=== PATIENT | female | born 1930 | race Caucasian/White ===

== ENCOUNTER 2016-12-05 19:27 | Emergency (ER) | payer MEDICARE ==
[~2016-12-05] VITALS: Ht 154.9 cm; Wt 91.4 kg
[~2016-12-05 19:27] MED LIST: ACET-171 PO; ALBU90AE IH; AMLO10TA3 PO; ASCO500C6 PO; CALC-190 PO; CHOL100043 PO; CYCL5TAB PO; DEXT350P5 PO; FERR325T39 PO; FURO40TA4 PO; GABA-502 PO; HYDR-4003 PO; INSU100I18 SUBQ; LEVO50TA6 PO; LOSA100T29 PO; METO50TA3 PO; NPH,100I SUBQ; NYST1POW23 TOPICAL; OMEP20CA11 PO; PRAM0.5T3 PO; PRE20 PO; SIMV20TA4 PO
[2016-12-05 19:28] VITALS: BP 116/77; PULSE 91; RESP 16; O2SAT 98
[2016-12-05] MEDS ORDERED: fentaNYL-PF 50 mCg/mL 2 mL Inj ONE (19:28)
[2016-12-05] MEDS ORDERED: 0.9% Sodium Chloride 1,000 ML IV ONE (19:55)
--- NOTE | 2016-12-05 20:04 | ED.REPORT ---
HPI-Altered Mental Status Date of Service Dec 05, 2016 ED Provider: Socrates Bernal DO Ms. Sousa is a very pleasant 86-year-old female asked medical history of diabetes, hypertension, diverticulitis status post colostomy presents to the ED via EMS after urgent care visit she was reported to be hypotensive with an increased in confusion. Patient is able to answer questions appropriately does not complain of any specific pain with the exception of a headache/ lightheadedness 1 day. Patient states she began feeling generally unwell yesterday with an increase in malaise does not report nausea or vomiting or other sick contacts does endorse a nonproductive cough. Nursing Notes Stated Complaint: FLU SYMPTOMS Chief Complaint: General Complaint Nursing Notes Reviewed: Yes Allergies: Coded Allergies: Sulfa (Sulfonamide Antibiotics) (Verified Allergy, Unknown, 06/19/16) adhesive tape (Verified Allergy, Unknown, UNKNOWN, 06/19/16) meperidine (Verified Allergy, Unknown, 06/19/16) metformin (Verified Allergy, Unknown, 06/19/16) Tetanus and Diphtheria Toxoid (Verified Adverse Reaction, Severe, localized swelling, severe, 09/12/15) amitriptyline (Verified Adverse Reaction, Severe, hallucinations, 09/12/15 ) Opioids - Morphine Analogues (Verified Adverse Reaction, Intermediate, Nausea,Vomiting, 09/12/15) codeine (Verified Adverse Reaction, Intermediate, N&V, 09/12/15) states codiene causes nausea and vomiting, but taking Vicodin causes no problems for her. metformin HCl (Verified Adverse Reaction, Intermediate, Nausea, 09/12/15) Scheduled Amlodipine (Amlodipine) 10 Mg Tablet 10 MG PO DAILY Ascorbic Acid (Vitamin C) 500 Mg Capsule.er 500 MG PO DAILY Calcium Carb&Cit/Mag12/Vit D3 (Calcium 500 mg Tablet) 1 Each Tablet 1 EACH PO BIDWM Cefuroxime Axetil (Cefuroxime) 500 Mg Tablet 500 MG PO BID Cholecalciferol (Vitamin D3) (Vitamin D) 1,000 Unit Tablet 1,000 UNIT PO DAILY Ferrous Sulfate (Iron) 325 Mg Tablet 325 MG PO QPM Furosemide (Furosemide) 40 Mg Tablet 40 MG PO 08,12 Gabapentin (Gabapentin) 300 Mg Capsule 600 MG PO HS Hydrocodone-Acetaminophen 5-325 mg (Hydrocodone-Acetaminophen 5-325 mg) 1 Each Tablet 1 EACH PO ACHS 4 tablets daily. Tablet at bedtime OR in the middle of the night. Insulin Lispro (HumaLOG U100 Insulin Pen) 100 Unit/1 Ml Insuln.pen 4 UNIT SUBQ TIDWM Levothyroxine (Levothyroxine) 50 Mcg Tablet 50 MCG PO DAILY Losartan Potassium (Losartan Potassium) 100 Mg Tablet 100 MG PO DAILY Metoprolol Tartrate (Metoprolol Tartrate) 50 Mg Tablet 50 MG PO BID NPH, Human Insulin Isophane (HUMulin-N U100 Insulin Kwikpen) 100 Unit/1 Ml Insuln.pen 12 UNIT SUBQ DAILYWM NPH, Human Insulin Isophane (HUMulin-N U100 Insulin Kwikpen) 100 Unit/1 Ml Insuln.pen 10 UNIT SUBQ DAILYWD Nystatin (Nystatin) 1 Each Powder.ea. 1 APPLIC TOPICAL BID to affected areas in abdominal folds, groin, under breasts. Omeprazole (Omeprazole) 20 Mg Capsule.dr 40 MG PO BID Pramipexole Dihydrochloride (Mirapex) 0.5 Mg Tablet 0.5 MG PO HS 2-3 hours before bedtime. Prednisone (PredniSONE) 20 Mg Tablet 20 MG PO TID Simvastatin (Simvastatin) 20 Mg Tablet 20 MG PO HS Scheduled PRN Acetaminophen (Acetaminophen) 500 Mg Tablet 1,000 MG PO HS PRN PRN For Pain Avoid using together with Vicodin (Hydrocodone/acetaminophen). Cyclobenzaprine (Cyclobenzaprine) 5 Mg Tablet 5 MG PO TID PRN PRN Spasm Dextrin (Fiber) 350 Gm Powder 1-2 TBS PO HS PRN PRN For Constipation Miscellaneous Medications Albuterol Sulfate (Proair Respiclick) 90 Mcg Aer.pow.ba 2 PUFFS IH General Time Seen by MD: 19:43 Chief Complaint Not acting right Hx Obtained From: Patient, Spouse Arrived By: Ambulance Sudden in Onset?: No Onset Occurred: 1 day ago Symptom Duration: Since onset Past Medical History Past Medical History PER OLD REPORTS 1. Well documented in previous H and P's. 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 2. History of atrial fibrillation in the past. 3. Hypertension history. 4. Diabetes mellitus type 2. The patient is insulin dependent. 5. Obstructive sleep apnea. 6. Hyperlipidemia. 7. Hypothyroidism. 8. Depression. 9. Anxiety. 10. GERD. 11. Hiatal hernia. 12. Chronic back pain. 13. Osteoporosis. 14. L. leg edema status post fall 15. History of bilateral breast biopsy for bening disease. Reports: COPD, GERD, Hyperlipidemia Past Surgical History 1. Bilateral knee replacements. 2. Jessica fundoplication. 3. Bilateral breast biopsies. 4. Sigmoid colectomy. Smoking History Never Smoker Social History Other Social History: Local resident Ambulatory Status Walker Review of Systems Constitutional: Denies: Chills, Fever Eyes: Denies: Blurred bilateral, Photophobia Respiratory: Reports: Non-productive cough, Denies: Hemoptysis, Pleuritic pain, Shortness of breath, Wheezing Cardiovascular: Denies: Chest pain, Edema, Palpitations GI: Reports: Nausea, Denies: Abdominal pain, Belching, Bloody/tarry stool, Constipation, Diarrhea , Vomiting Neurologic: Reports: Headache, Lightheaded, Denies: Abnormal movement, Change LOC, Confusion, Dizziness, Focal weakness, Numbness, Spinning sensation, Vision change, Weakness Psychiatric: Reports: Confusion, Denies: Change mental status Physical Exam General: No acute distress, well-developed, well-nourished, appropriately interactive though slow to answer questions. HEENT: Normocephalic, atraumatic. External ears without defect. Pupils round and reactive to light, right pupil appears more dilated than left patient endorses recent right eye surgery. Anicteric sclerae, moist conjunctivae, and no lid lag. Oropharynx free of erythema and cobble stoning with moist mucosa. Upper dentures in place Neck: Supple with full range of motion. No jugular venous distension. Cardiovascular: Irregular rhythm tachycardic rate no murmurs, rubs, or gallops appreciated Pulmonary: Clear to auscultation bilaterally upper anterior lobes with no crackles, wheezes, or rhonchi. Normal respiratory effort with no use of accessory muscles. Abdomen: Soft, nontender, nondistended. Extremities: No clubbing, mild lower extremity edema bilaterally to ankles. Skin: Normal temperature, turgor, and texture; no rash, ulcers, or subcutaneous nodules appreciated. Neurological: Cranial nerves grossly intact. Normal muscle strength, tone, and bulk. Reflexes, coordination, and sensory function within normal limits. Walks with walker Psychiatric: Normal mood and affect. Alert and oriented to person, place, and time. Initial Vital Signs Vital Signs (First) Date Time Temp Pulse Resp B/P Pulse Ox O2 Delivery O2 Flow Rate FiO2 12/05/16 19:28 36.8 91 16 116/77 98 Room Air Initial VS: Reviewed Interpretation & Diagnostics X-RAY CHEST ONE VIEW, PORTABLE IMPRESSION: No acute cardiopulmonary disease process. Dictated by: Tamiko Licona MD, PhD on 12/05/2016 at 20:17 CT brain noncontrast showed no acute intracranial abnormality. Lab Results Interpretation Result Diagram: 12/05/16 2000 12/05/162 Test 12/05/16 20:00 12/05/16 21:18 12/05/16 22:00 12/05/16 22:02 White Blood Count 10.0th/mm3 (3.8-10.1) Red Blood Count 4.43mil/mm3 (3.90-5.20) Hemoglobin 12.6g/dL (12.0-15.6) Hematocrit 39.4% (35.0-46.0) Mean Corpuscular Volume 88.9fL (81-100) Mean Corpuscular Hemoglobin 28.4pg (27.0-35.0) Mean Corpuscular Hemoglobin Concent 32.0% (32.0-37.0) Red Cell Distribution Width 15.1% (12.3-15.4) Platelet Count 144bil/L (150-400) Neutrophils (%) (Auto) 88.6% (40-74) Lymphocytes (%) (Auto) 4.2% (14-46) Monocytes (%) (Auto) 4.1% (4-12) Eosinophils (%) (Auto) 2.7% (0-5) Basophils (%) (Auto) 0.2% (0-3) Lactic Acid Level 1.7mmol/L (0.4-2.0) Magnesium Level 2.1mg/dL (1.6-2.6) Total Bilirubin 0.8mg/dL (0.0-1.2) Aspartate Amino Transf (AST/SGOT) 19U/L (0-50) Alanine Aminotransferase (ALT/SGPT) 19U/L (0-32) Alkaline Phosphatase 64U/L (25-165) Total Protein 6.7g/dL (6.4-8.4) Albumin 3.4g/dL (3.4-5.0) Procalcitonin 0.53ng/mL (See Comment) Urine Color Yellow (YELLOW) Urine Appearance Clear (CLEAR,HAZY) Urine pH 6.0 (5.0-8.0) Urine Specific [place] 1.010 (1.003-1.035) Urine Protein Negativemg/dL (NEG,TRACE) Urine Glucose (UA) Negativemg/dL (NEGATIVE) Urine Ketones Negativemg/dL (NEGATIVE) Urine Occult Blood Negative (NEGATIVE) Urine Nitrite Negative (NEGATIVE) Urine Bilirubin Negative (NEGATIVE) Urine Urobilinogen Normalmg/dL (NORMAL) Urine Leukocyte Esterase Trace (NEGATIVE) Urine RBC 0-2/hpf (0-2) Urine WBC 6-10/hpf (0-5) Urine Epithelial Cells Few/hpf (NONE-MOD) Urine Crystals None seen (NONE SEEN) Urine Bacteria Few/hpf (NONE-FEW) Urine Hyaline Casts None/lpf (NONE) Urine Granular Casts None seen (NONE SEEN) Urine Waxy Casts None seen (NONE SEEN) Urine Red Blood Cell Casts None seen (NONE SEEN) Urine White Blood Cell Casts None seen (NONE SEEN) Urine Mucus None seen (None Seen) Urine Trichomonas None seen (NONE SEEN) Urine Yeast None (NONE SEEN) Urinalysis Comment None Urine Culture Reflexed Indicated Troponin T 0.010ug/L (0.0-0.011) Sodium Level 139mEq/L (134-144) Potassium Level 3.5mEq/L (3.5-5.2) Chloride Level 99mEq/L (97-108) Carbon Dioxide Level 26mmol/L (18-29) Blood Urea Nitrogen 29mg/dL (8-27) Creatinine 1.03mg/dL (0.57-1.00) Estimat Glomerular Filtration Rate 73mL/min (>59) Glucose Level 124mg/dL (60-99) Calcium Level 8.3mg/dL (8.5-10.1) ECG Interpretation ECG Interpretation: A. fib, right bundle branch block, old inferior infarct Re-Eval/Medical Decision Med Decision/Clinical Course Patient's presenting symptoms most likely secondary to urinary tract infection. Though reported to be hypotensive in urgent care patient's vital signs remained stable throughout ED stay, lowest map recorded 88. CBC unremarkable, CMP showed mildly elevated BUN/creatinine 30/1.15. Lactic acid negative troponin negative pro calcitonin 0.53. Chest x-ray showed no acute cardiopulmonary disease. Patient given normal saline, Vital signs remained stable throughout ED stay temperature 36.8, blood pressure 116/77 pulse rate 91 respiratory rate 16 EKG showed A. fib not seen in prior EKG. When questioned about this both patient and patient's son endorsed that she is diagnosed with paroxysmal A. fib , though not on blood thinning medication. Repeat BMP showed creatinine at 1.03 BUN 29. At time of dictation urine and blood cultures pending. Patient did complain of head ache/pain brain CT noncontrast negative for acute changes. While white count unremarkable at 10,000. Patient did have an elevated pro- calcitonin. Chest x-ray READ showed no acute cardiopulmonary process though patient did appear to have possible left lower lobe developing infiltrate. Urinalysis showed 6-10 WBCs and trace leukocyte esterase. Patient given cefuroxime which should cover both possible pneumonia and UTI. urine grows culture and proves to be insensitive to cephalosporin will contact patient. Counseled Regarding: Diagnosis, Lab results, Need for follow-up, When/why to return to ED Patient Discharge & Departure Shift Change Sign-Out Response to Therapy: Improved Impression: Primary Impression: Urinary tract infection Urinary tract infection type: acute cystitis Hematuria presence: without hematuria Qualified Code: N30.00 - Acute cystitis without hematuria Disposition: Home Discharge Condition All VS Reviewed: Yes Condition: Improved Additional Instructions: The blood work we obtained in the ER did not any specific signs for infection, though it did show that you are mildly dehydrated as repeat blood work after you had received fluid showed an improvement in your kidneys. Your urine however did show that you have a mild urinary tract infection. You have received antibiotics while in the emergency department, and I am giving her a prescription for Macrobid that you are to take 2 times per day for the next week. Imaging of your brain and your chest did not show any active signs of infection. This point you are medically cleared for discharge to home with your antibiotic prescription however if you develop any worsening or continuation of her current symptoms, develop fevers chills nausea vomiting headache visual changes chest pain shortness of breath diarrhea or blood in your urine or stool please return to the emergency door refer additional evaluation. Referrals: Napoleon Patterson DO (PCP) Attending Statement I personally took a history performed a physical examination. I took the call from the urgent care transferred Mrs. Sousa to us. This a very delightful 86- year-old female who presents to [facility] with no complaints whatsoever. Evidently she had some forgetfulness and possible fevers she was seen at an urgent care. They are concerned that she was hypotensive in the really could not work her up. We found that she probably has a partially treated urinary tract infection and I am concerned that she may be developing pneumonia on the x-ray. Either way she was given a dose of IV antibiotics and IV fluids. She was worked up. CT scan brain was reassuring. Acute stroke seems very unlikely. She certainly is not septic. PR was ruled out based on history or physical examination. Diagnostics were also reassuring from a cardiac standpoint. Mrs. Sousa did not wish to be any longer the emergency department. I found no good reason to admit her to the hospital. I do think that we should culture her urine and place her on a antibiotic to cover both chest and urine. We did this. She is followed closely. At discharge she is slightly stable oriented 4 and was ready to be discharged home. She is pleased with her care and disposition. JACKSON KIM DO Dec 05, 2016 20:04 Socrates Bernal DO Dec 06, 2016 17:47
[2016-12-05 20:13] LABS: BASOPHILS % (AUTO) 0.2 % (0-3); EOSINOPHILS % (AUTO) 2.7 % (0-5); MONOCYTES % (AUTO) 4.1 % (4-12); Mean Corpuscular Hemoglobin 28.4 pg (27.0-35.0); Mean Corpuscular Volume 88.9 fL (81-100); NEUTROPHILS % (AUTO) 88.6 % (40-74); Platelet Count 144 bil/L (150-400)
[2016-12-05 20:15] VITALS: BP 101/82; PULSE 95; RESP 26; O2SAT 97
--- NOTE | 2016-12-05 20:18 | DRSVH ---
PROCEDURE: X-RAY CHEST ONE VIEW, PORTABLE ([id number]) INDICATIONS: dizziness TECHNIQUE: One view of the chest was acquired. COMPARISON: [facility], CR, XR CHEST 2VW, 09/12/2015, 23:00. FINDINGS: Surgical changes and devices: Multiple surgical clips noted the gastroesophageal junction.. Lungs and pleura: No pleural effusions or pneumothorax. Lungs are clear. Mediastinum: Mediastinal contours appear normal. Heart size is normal. Bones and chest wall: No suspicious bony lesions. Overlying soft tissues appear unremarkable. IMPRESSION: No acute cardiopulmonary disease process. Dictated by: Tamiko Licona MD, PhD on 12/05/2016 at 20:17 Approved by: Tamiko Licona MD, PhD on 12/05/2016 at 20:17
[2016-12-05 20:46] LABS: TROPONIN T < 0.010 ug/L (0.0-0.011)
[2016-12-05 20:49] LABS: Magnesium 2.1 mg/dL (1.6-2.6)
[2016-12-05 21:16] VITALS: BP 140/76; PULSE 86; RESP 16; O2SAT 98
[2016-12-05 21:27] LABS: COLOR,URINE YELLOW (YELLOW)
[2016-12-05 21:28] LABS: APPEARANCE,URINE CLEAR (CLEAR,HAZY); OCCULT BLOOD,URINE NEGATIVE (NEGATIVE); UROBILINOGEN,URINE NORMAL (NORMAL)
[2016-12-05] MEDS ORDERED: cefTRIAXone Inj 2,000 MG in IV Premix 1 EACH IV ONE (21:55)
[2016-12-05] MEDS ORDERED: NITR100 PO (23:31)
[2016-12-06] MEDS ORDERED: CEFU500T61 PO (00:17)
[2016-12-06 00:40] VITALS: PULSE 82; RESP 18; O2SAT 97
--- NOTE | 2016-12-06 09:08 | DRSVH ---
PROCEDURE: CT BRAIN WITHOUT CONTRAST ([id number]) INDICATIONS: headache TECHNIQUE: Noncontrast 4.5 mm thick angled axial sections acquired from the foramen magnum to the vertex, with c oronal reformats. COMPARISON: None. FINDINGS: Image quality: Excellent. CSF spaces: Basal cisterns are patent. No extra-axial fluid collections. The ventricles are symmet sebastien in size and shape. Brain: No intracranial bleeds or masses. There is cerebral volume loss for age, with resultant vent ricular and sulcal prominence. There are periventricular and deep white matter chronic small vessel ischemic changes. There is intracranial internal carotid artery and left vertebral artery atheroscle rosis. Skull and face: Calvarium and visualized facial bones appear intact, without suspicious lesions. Sinuses: Mild mucosal thickening noted in the maxillary sinuses bilaterally. The mastoids are clear. IMPRESSION: No acute intracranial disease process. Dictated by: Tamiko Licona MD, PhD on 12/06/2016 at 9:06 Approved by: Tamiko Licona MD, PhD on 12/06/2016 at 9:06
== END 2016-12-06 00:40 | disposition home or self-care (01) ==
LOC: SED 19:27
DX: N30.00 Acute cystitis without hematuria (principal); I48.91 Unspecified atrial fibrillation; I45.10 Unspecified right bundle-branch block; E11.9 Type 2 diabetes mellitus without complications; I10 Essential (primary) hypertension; K57.92 Diverticulitis of intestine, part unspecified, without perforation or abscess without bleeding; J44.9 Chronic obstructive pulmonary disease, unspecified; E78.5 Hyperlipidemia, unspecified; K21.9 Gastro-esophageal reflux disease without esophagitis; Z93.3 Colostomy status; Z79.4 Long term (current) use of insulin; Z88.2 Allergy status to sulfonamides; Z88.5 Allergy status to narcotic agent; Z88.8 Allergy status to other drugs, medicaments and biological substances; Z88.7 Allergy status to serum and vaccine
CPT/HCPCS: 36415; 70450; 71010; 80048; 80053; 81000; 82308; 83605; 83735; 84484; 85025; 87040; 87086; 87088; 93005; 96361; 96365; 99285; J0696; J7030

== ENCOUNTER 2017-05-10 11:29 | Emergency (ER) | payer MEDICARE ==
[~2017-05-10] VITALS: Ht 154.9 cm; Wt 91.4 kg
[~2017-05-10 11:29] MED LIST changes: +CEFU500T61 PO
[2017-05-10 11:36] VITALS: BP 160/36; PULSE 83; RESP 14; O2SAT 96
[2017-05-10] MEDS ORDERED: 0.9% Sodium Chloride 1,000 ML IV ONE (11:43)
[2017-05-10] MEDS ORDERED: Ondansetron 2 mg/mL 2 mL Inj IVPUSH ONE ×2 (11:45→13:10)
--- NOTE | 2017-05-10 11:59 | ED.REPORT ---
HPI-General Illness Date of Service May 10, 2017 ED Provider: Orlando Garcia MD Pt is an 86 y/o female with a hx of DM, CHF, COPD and diverticulitis (s/p colostomy) who presents to the ED via EMS with multiple vague complaints today. The pt is a very non-specific, rambling historian and continuously changes her story. Initially, she states she was experiencing shaking. Then she complains of lower abdominal pain. She states "I felt like my bowels started going but there was nothing there. The colostomy bag was empty". Later, the pt denies abdominal pain and complains of dysuria. She also complains of nausea. She states that she urinated on herself this morning but that this is normal. Despite multiple attempts to clarify the patient's primary complaint today I am unsuccessful however from what I can gather she has experienced the urge to have a bowel movement without success and may have also experienced lower abdominal pain and urinary symptoms. Nursing Notes Stated Complaint: STOMACH DISCOMFORT Chief Complaint: Female Abdominal Pain Nursing Notes Reviewed: Yes Allergies: Coded Allergies: Sulfa (Sulfonamide Antibiotics) (Verified Allergy, Unknown, 06/19/16) adhesive tape (Verified Allergy, Unknown, UNKNOWN, 06/19/16) meperidine (Verified Allergy, Unknown, 06/19/16) metformin (Verified Allergy, Unknown, 06/19/16) Tetanus and Diphtheria Toxoid (Verified Adverse Reaction, Severe, localized swelling, severe, 09/12/15) amitriptyline (Verified Adverse Reaction, Severe, hallucinations, 09/12/15 ) Opioids - Morphine Analogues (Verified Adverse Reaction, Intermediate, Nausea,Vomiting, 09/12/15) codeine (Verified Adverse Reaction, Intermediate, N&V, 09/12/15) states codiene causes nausea and vomiting, but taking Vicodin causes no problems for her. metformin HCl (Verified Adverse Reaction, Intermediate, Nausea, 09/12/15) Scheduled Ascorbic Acid (Vitamin C) 500 Mg Capsule.er 500 MG PO DAILY Calcium Carb&Cit/Mag12/Vit D3 (Calcium 500 mg Tablet) 1 Each Tablet 1 EACH PO BIDWM Cefuroxime Axetil (Cefuroxime) 500 Mg Tablet 500 MG PO BID Cholecalciferol (Vitamin D3) (Vitamin D) 1,000 Unit Tablet 1,000 UNIT PO DAILY Ferrous Sulfate (Iron) 325 Mg Tablet 325 MG PO QPM Furosemide (Furosemide) 40 Mg Tablet 40 MG PO 08,12 Gabapentin (Gabapentin) 300 Mg Capsule 600 MG PO HS Hydrocodone-Acetaminophen 5-325 mg (Hydrocodone-Acetaminophen 5-325 mg) 1 Each Tablet 1 EACH PO ACHS 4 tablets daily. Tablet at bedtime OR in the middle of the night. Insulin Lispro (HumaLOG U100 Insulin Pen) 100 Unit/1 Ml Insuln.pen 4 UNIT SUBQ TIDWM Levothyroxine (Levothyroxine) 50 Mcg Tablet 50 MCG PO DAILY Losartan Potassium (Losartan Potassium) 100 Mg Tablet 100 MG PO DAILY Metoprolol Tartrate (Metoprolol Tartrate) 50 Mg Tablet 50 MG PO BID NPH, Human Insulin Isophane (HUMulin-N U100 Insulin Kwikpen) 100 Unit/1 Ml Insuln.pen 12 UNIT SUBQ DAILYWM NPH, Human Insulin Isophane (HUMulin-N U100 Insulin Kwikpen) 100 Unit/1 Ml Insuln.pen 10 UNIT SUBQ DAILYWD Nystatin (Nystatin) 1 Each Powder.ea. 1 APPLIC TOPICAL BID to affected areas in abdominal folds, groin, under breasts. Omeprazole (Omeprazole) 20 Mg Capsule.dr 40 MG PO BID Oxybutynin Chloride ER (Oxybutynin Chloride ER) 5 Mg Tab.er.24 5-10 MG PO DAILY Polyethylene Glycol 3350 (Miralax) 17 Gm Powd.pack 17 GM PO DAILY Pramipexole Dihydrochloride (Mirapex) 0.5 Mg Tablet 0.5 MG PO HS 2-3 hours before bedtime. Prednisone (PredniSONE) 20 Mg Tablet 20 MG PO TID Simvastatin (Simvastatin) 20 Mg Tablet 20 MG PO HS Triamcinolone Acet (Triamcinolone Acetonide Ointment) 1 Applic/0.25 Gm Oint 60 APPLIC TOP BID Scheduled PRN Acetaminophen (Acetaminophen) 500 Mg Tablet 1,000 MG PO HS PRN PRN For Pain Avoid using together with Vicodin (Hydrocodone/acetaminophen). Cyclobenzaprine (Cyclobenzaprine) 5 Mg Tablet 5 MG PO TID PRN PRN Spasm Dextrin (Fiber) 350 Gm Powder 1-2 TBS PO HS PRN PRN For Constipation Temazepam (Temazepam) 7.5 Mg Capsule 7.5 MG PO HS PRN PRN For Insomnia Miscellaneous Medications Albuterol Sulfate (Proair Respiclick) 90 Mcg Aer.pow.ba 2 PUFFS IH General Time Seen by MD: 11:36 Chief Complaint Other (multiple complaints) Hx Obtained From: Patient Arrived By: Ambulance Sudden in Onset?: Yes Onset Occurred: 9 - 12 hours ago Symptom Duration: Since onset Location: : Abdomen Quality: Painful Severity: Current: Mild Severity: Maximum: Mild Recent Healthcare: No recent doctor visit Similar Sx Previous: No Past Medical History Past Medical History PER OLD REPORTS 1. Well documented in previous H and P's. 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 2. History of atrial fibrillation in the past. 3. Hypertension history. 4. Diabetes mellitus type 2. The patient is insulin dependent. 5. Obstructive sleep apnea. 6. Hyperlipidemia. 7. Hypothyroidism. 8. Depression. 9. Anxiety. 10. GERD. 11. Hiatal hernia. 12. Chronic back pain. 13. Osteoporosis. 14. L. leg edema status post fall 15. History of bilateral breast biopsy for bening disease. Reports: COPD, GERD, Hyperlipidemia Past Surgical History 1. Bilateral knee replacements. 2. Jessica fundoplication. 3. Bilateral breast biopsies. 4. Sigmoid colectomy. Smoking History Never Smoker Social History Other Social History: Local resident Ambulatory Status Walker Review of Systems Full Review of Systems GI: Reports: Abdominal pain, Nausea Female: Reports: Dysuria Neurologic: Reports: Shaking Complete sys rev & neg: except as marked. Physical Exam Vital Signs Vital Signs Date Time Temp Pulse Resp B/P Pulse Ox O2 Delivery O2 Flow Rate FiO2 05/10/17 13:57 36.4 95 16 150/61 86 Room Air 05/10/17 11:36 37.2 83 14 160/36 96 Room Air Initial VS: Reviewed Head / Eyes: Atraumatic, Normocephalic Neck: Supple, Non-tender, Full range of motion Extremities: Vascular intact, Neuro intact, No swelling, No tenderness Skin: Warm, Dry, No cyanosis Neurologic: Alert, Oriented, Nonfocal General/Constitutional: Awake, Alert, No acute distress Respiratory / Chest: Atraumatic, Breath sounds NL, Breath sounds = bilat, No respiratory distress, No rales, No rhonchi, No wheezing Cardiovascular: Heart rate NL, Regular rhythm, Heart sounds NL, No gallop, No murmurs, No rubs Abdomen: Soft, Non-tender (on palpation in all 4 quadrants) Ostomy bag present in the left lower quadrant with slight blood and firm stool present. Well healing surgical scar. Neurologic: Oriented X3, Speech NL, No motor deficits, No sensory deficits Interpretation & Diagnostics Lab Results Interpretation Result Diagram: 05/10/17 1215 05/10/17 1215 Test 05/10/17 12:15 05/10/17 12:33 05/10/17 13:54 White Blood Count 11.8th/mm3 (3.8-10.1) Red Blood Count 4.53mil/mm3 (3.90-5.20) Hemoglobin 12.7g/dL (12.0-15.6) Hematocrit 40.5% (35.0-46.0) Mean Corpuscular Volume 89.4fL (81-100) Mean Corpuscular Hemoglobin 28.0pg (27.0-35.0) Mean Corpuscular Hemoglobin Concent 31.4% (32.0-37.0) Red Cell Distribution Width 15.3% (12.3-15.4) Platelet Count 139bil/L (150-400) Neutrophils (%) (Auto) 88.2% (40-74) Lymphocytes (%) (Auto) 3.1% (14-46) Monocytes (%) (Auto) 7.9% (4-12) Eosinophils (%) (Auto) 0.2% (0-5) Basophils (%) (Auto) 0.2% (0-3) Sodium Level 138mEq/L (134-144) Potassium Level 4.6mEq/L (3.5-5.2) Chloride Level 97mEq/L (97-108) Carbon Dioxide Level 28mmol/L (18-29) Blood Urea Nitrogen 28mg/dL (8-27) Creatinine 0.85mg/dL (0.57-1.00) Estimat Glomerular Filtration Rate 91mL/min (>59) Glucose Level 174mg/dL (60-99) Calcium Level 9.7mg/dL (8.5-10.1) Magnesium Level 2.0mg/dL (1.6-2.6) Total Bilirubin 0.7mg/dL (0.0-1.2) Aspartate Amino Transf (AST/SGOT) 16U/L (0-50) Alanine Aminotransferase (ALT/SGPT) 16U/L (0-32) Alkaline Phosphatase 85U/L (25-165) Total Protein 7.0g/dL (6.4-8.4) Albumin 3.8g/dL (3.4-5.0) Lipase 15U/L (13-60) Urine Color Straw (YELLOW) Urine Appearance Clear (CLEAR,HAZY) Urine pH 5.5 (5.0-8.0) Urine Specific [place] 1.030 (1.003-1.035) Urine Protein Tracemg/dL (NEG,TRACE) Urine Glucose (UA) Negativemg/dL (NEGATIVE) Urine Ketones Negativemg/dL (NEGATIVE) Urine Occult Blood Negative (NEGATIVE) Urine Nitrite Negative (NEGATIVE) Urine Bilirubin Negative (NEGATIVE) Urine Urobilinogen Normalmg/dL (NORMAL) Urine Leukocyte Esterase Negative (NEGATIVE) Urine RBC 0-2/hpf (0-2) Urine WBC 0-5/hpf (0-5) Urine Epithelial Cells None/hpf (NONE-MOD) Urine Crystals None seen (NONE SEEN) Urine Bacteria Few/hpf (NONE-FEW) Urine Hyaline Casts None/lpf (NONE) Urine Granular Casts None seen (NONE SEEN) Urine Waxy Casts None seen (NONE SEEN) Urine Red Blood Cell Casts None seen (NONE SEEN) Urine White Blood Cell Casts None seen (NONE SEEN) Urine Mucus None seen (None Seen) Urine Trichomonas None seen (NONE SEEN) Urine Yeast None (NONE SEEN) Urinalysis Comment None Urine Culture Reflexed Not indicated CT Abd / Pelvis Interpretation IMPRESSION: Cause of right lower quadrant pain is not identified. There is a very mild right hydronephrosis and hydroureter to the bladder without identifiable stone or mass in the bladder. 15 mm stone is again seen centrally in nonobstructing left kidney. Bowel loops and mesenteric fat herniated into the cyst left lower quadrant colostomy are unchanged. Small right paraumbilical hernia with a knuckle of small bowel is unchanged. Appendix is normal no inflammatory changes seen. Dictated by: Alexys Carvalho M.D. on 05/10/2017 at 13:54 Approved by: Alexys Carvalho M.D. on 05/10/2017 at 14:04 Study type: Abdominal CT IV contrast Interpretation / Wet Read by: Interpret - Radiologist Re-Eval/Medical Decision Med Decision/Clinical Course Pt is an 86 y/o female with a hx of DM, CHF, COPD and diverticulitis (s/p colostomy) who presents to the ED via EMS with multiple vague complaints today. The pt is a very non-specific, rambling historian and continuously changes her story. Initially, she states she was experiencing shaking. Then she complains of lower abdominal pain. She states "I felt like my bowels started going but there was nothing there. The colostomy bag was empty". Later, the pt denies abdominal pain and complains of dysuria. She also complains of nausea. She states that she urinated on herself this morning but that this is normal. Despite multiple attempts to clarify the patient's primary complaint today I am unsuccessful however from what I can gather he is experienced the urge to have a bowel movement without success and may have also experienced lower abdominal pain and urinary symptoms. History of the emergency department the patient is afebrile and in no apparent distress. Her abdominal examination is relatively benign however she does notably have some fairly firm stool out of her colostomy site with irritation of her colostomy and scant bright red blood present. I suspect that she may be experiencing constipation as this would explain her abdominal discomfort, the sensation that she needs to have a bowel movement though not having any bowel movement. That all being said given her advanced age, surgical history extremely limited ability to obtain meaningful information I will proceed with complete laboratory evaluation and imaging. Labs notable as below: CBC: borderline leukocytosis, otherwise unremarkable CMP: unremarkable except for the mildly elevated BUN of 28 Creatinine within normal limits Glucose at 174 UA shows no signs of UTI or blood CT abdomen/pelvis: Cause of right lower quadrant pain is not identified. There is a very mild right hydronephrosis and hydroureter to the bladder without identifiable stone or mass in the bladder. 15 mm stone is again seen centrally in nonobstructing left kidney. Bowel loops and mesenteric fat herniated into the cyst left lower quadrant colostomy are unchanged. Small right paraumbilical hernia with a knuckle of small bowel is unchanged. Appendix is normal no inflammatory changes seen. At this time laboratory and imaging studies are reassuring. The patient does have multiple nonacute findings as above not of these in my assessment are likely to explain her vague symptoms. Abdominal examination is not consistent with strain related or incarcerated hernia. She is now passed stool into her ostomy bag I see no evidence of melena. The bleeding is obviously related to external irritation at her ostomy site and did not feel that it requires further immediate workup. She will be started on MiraLAX and is advised to take it daily and orally hydrate in order to make her stool more soft. She will follow up closely with her primary care physician. Prior to discharge follow-up and return precautions were reviewed in detail with the patient who verbalized understanding and agreement with the plan. The patient was discharged in stable condition. Time of Eval: 14:17 Patient Status: Condition improved Re-Evaluation/Progress Note: Rechecked pt. Discussed lab results, imaging results, diagnosis and plan to discharge. Pt understands and agrees with the plan. F/U instructions and RTER warning given. All questions addressed. Counseled Regarding: Diagnosis, Lab results, Need for follow-up, When/why to return to ED Discharge & Departure Primary Impression: Abdominal pain Abdominal location: lower abdomen, unspecified Qualified Code: R10.30 - Lower abdominal pain, unspecified Additional Impressions: Constipation Constipation type: unspecified constipation type Qualified Code: K59.00 - Constipation, unspecified History of colostomy Bloody stool Dysuria Disposition: Home Discharge Condition All VS Reviewed: Yes Condition: Stable Patient Instructions: Constipation (ED) Additional Instructions: Thank you for seeking care at emergency room. It is difficult for us to make definitive diagnoses in the ED but we believe that you are experiencing constipation. Our primary goal today in the ED was to evaluate you for any life-threatening conditions. Your evaluation was reassuring. You will be discharged with a prescription for MiraLAX, please take as directed with plenty of liquids. Please be aware that narcotic pain medications can cause constipation, this may be contributing to your symptoms. You should follow-up with your primary doctor in the next week. You should return to the ED immediately if you develop worsening symptoms, fevers, vomiting, cough, shortness of breath, chest pain, lightheadedness, weakness or any other concerning signs or symptoms. Thank you for letting us partake in your care today. Referrals: Napoleon Patterson DO (PCP) Scribe Attestation Portions of this note were transcribed by Je Bird. I, , personally performed the history, physical exam and medical decision-making;I reviewed and confirmed the accuracy of the information in the transcribed note. Signed by Tucker Hinojosa. 05/10/17 14:18 copies to: Napoleon Patterson Beck O MD May 10, 2017 11:59 Je Bird May 10, 2017 12:15
[2017-05-10 12:33] LABS: BASOPHILS % (AUTO) 0.2 % (0-3); EOSINOPHILS % (AUTO) 0.2 % (0-5); MONOCYTES % (AUTO) 7.9 % (4-12); Mean Corpuscular Volume 89.4 fL (81-100); NEUTROPHILS % (AUTO) 88.2 % (40-74); Platelet Count 139 bil/L (150-400)
[2017-05-10 13:15] LABS: APPEARANCE,URINE CLEAR (CLEAR,HAZY); COLOR,URINE STRAW (YELLOW); PH,URINE 5.5 (5.0-8.0)
[2017-05-10 13:16] LABS: OCCULT BLOOD,URINE NEGATIVE (NEGATIVE); UROBILINOGEN,URINE NORMAL (NORMAL)
[2017-05-10] MEDS ORDERED: POLY17PO6 PO (13:46)
[2017-05-10 13:57] VITALS: BP 150/61; PULSE 95; RESP 16; O2SAT 86
--- NOTE | 2017-05-10 14:06 | DRSVH ---
PROCEDURE: CT ABDOMEN AND PELVIS WITH CONTRAST ([id number]) INDICATIONS: abd pain, RLQ TECHNIQUE: After the administration of intravenous contrast, 5 mm thick sections acquired from the diaphragm to the symphysis. 5 mm coronal and sagittal reformats were acquired. For radiation dose reduction, the following was used: automated exposure control, adjustment of mA and/or kV according to patient omid lloyd. COMPARISON: [facility], CT, CT ABD PELVIS W CON, 01/06/2016, 6:19. FINDINGS: Image quality: Good ABDOMEN: Lung bases: Lung bases are clear. Heart size is normal. Previous hiatal hernia repair. Solid organs: Liver and spleen are normal in size and enhancement. Gallbladder is within normal meyer its. Biliary system is non dilated. Pancreas is fatty-replaced. No adrenal nodules. Kidneys demon strate normal size and enhancement. The right kidney is normal the left shows some atrophic changes o f the cortex superiorly. The right collecting system is minimally prominent as is the ureter to the b ladder but no stones are seen.. There is a 15 mm central nonobstructing stone in the left kidney unc hanged since the previous CT. Peritoneum and bowel: Bowel loops demonstrate normal wall thickness and caliber. No free fluid or a ir. The appendix is normal. There's been previous left lower quadrant colostomy. Into this stoma is a large herniation of some small and large bowel without obstruction and similar to the previous stud y. Just to the right of the umbilicus is a small hernia within the colon bowel nonobstructive and unc hanged since the previous CT. Nodes and vessels: No retroperitoneal or mesenteric adenopathy by size criteria. Aorta and inferior vena cava are normal in size. Miscellaneous: No ventral hernias. PELVIS: Genitourinary: Bladder wall thickness is normal. Hysterectomy in the past. Miscellaneous: No inguinal hernias or adenopathy. Bones: No suspicious bony lesions. No vertebral body compression fractures. IMPRESSION: Cause of right lower quadrant pain is not identified. There is a very mild right hydronephrosis and hydroureter to the bladder without identifiable stone o r mass in the bladder. 15 mm stone is again seen centrally in nonobstructing left kidney. Bowel loops and mesenteric fat herniated into the cyst left lower quadrant colostomy are unchanged. Small right paraumbilical hernia with a knuckle of small bowel is unchanged. Appendix is normal no inflammatory changes seen. Dictated by: Alexys Carvalho M.D. on 05/10/2017 at 13:54 Approved by: Alexys Carvalho M.D. on 05/10/2017 at 14:04
[2017-05-10] MEDS ORDERED: OXYB5TAB PO (14:10)
[2017-05-10] MEDS ORDERED: TEMA7.5C14 PO (14:10)
[2017-05-10] MEDS ORDERED: KEN1O TOP (14:10)
[2017-05-10 14:21] LABS: INR 1.06 ratio
[2017-05-10 14:43] VITALS: BP 142/62; PULSE 91; RESP 16; O2SAT 93
== END 2017-05-10 14:44 | disposition home or self-care (01) ==
LOC: SED 11:29
DX: K59.00 Constipation, unspecified (principal); R30.0 Dysuria; E11.9 Type 2 diabetes mellitus without complications; I50.9 Heart failure, unspecified; J44.9 Chronic obstructive pulmonary disease, unspecified; I11.0 Hypertensive heart disease with heart failure; E78.5 Hyperlipidemia, unspecified; E03.9 Hypothyroidism, unspecified; F32.9 Major depressive disorder, single episode, unspecified; F41.9 Anxiety disorder, unspecified; K21.9 Gastro-esophageal reflux disease without esophagitis; Z93.3 Colostomy status; Z87.19 Personal history of other diseases of the digestive system; Z79.4 Long term (current) use of insulin; Z88.2 Allergy status to sulfonamides; Z88.5 Allergy status to narcotic agent; Z88.8 Allergy status to other drugs, medicaments and biological substances; Z88.7 Allergy status to serum and vaccine
CPT/HCPCS: 36415; 74177; 80053; 81000; 83690; 83735; 85025; 85610; 96361; 96374; 96376; 99285; J2405; J7030; Q9967

== ENCOUNTER 2017-05-12 18:33 | Inpatient (IN) | payer MEDICARE ==
[~2017-05-12] VITALS: Ht 154.9 cm; Wt 88.1 kg
[~2017-05-12 18:33] MED LIST changes: -AMLO10TA3 PO; +KEN1O TOP; +OXYB5TAB PO; +POLY17PO6 PO; +TEMA7.5C14 PO
--- NOTE | 2017-05-12 18:44 | ED.REPORT ---
HPI-Dyspnea / Wheezing Date of Service May 12, 2017 ED Provider: Dr. Bernal Pt is an 86 year old female with a history of leg blood clots, sigmoid diverticulitis, A-fib, HTN, type II Dm, hyperlipidemia, and hypothyroidism who presents to the ED via EMS complaining of SOB prior to arrival while at [facility], an assisted living facility . Pt c/o associated difficulty walking, and intermittent lower extremity pain. She denies smoking, drug and alcohol use. Pt visited the ED for constipation 1 day ago. Nursing Notes Stated Complaint: SHORTNESS OF BREATH Nursing Notes Reviewed: Yes Allergies: Coded Allergies: Sulfa (Sulfonamide Antibiotics) (Verified Allergy, Unknown, 05/12/17) adhesive tape (Verified Allergy, Unknown, UNKNOWN, 05/12/17) meperidine (Verified Allergy, Unknown, 05/12/17) metformin (Verified Allergy, Unknown, 05/12/17) Tetanus and Diphtheria Toxoid (Verified Adverse Reaction, Severe, localized swelling, severe, 05/12/17) amitriptyline (Verified Adverse Reaction, Severe, hallucinations, 05/12/17) Opioids - Morphine Analogues (Verified Adverse Reaction, Intermediate, Nausea,Vomiting, 05/12/17) codeine (Verified Adverse Reaction, Intermediate, N&V, 05/12/17) states codiene causes nausea and vomiting, but taking Vicodin causes no problems for her. metformin HCl (Verified Adverse Reaction, Intermediate, Nausea, 05/12/17) Scheduled Ascorbic Acid (Vitamin C) 500 Mg Capsule.er 500 MG PO DAILY Calcium Carb&Cit/Mag12/Vit D3 (Calcium 500 mg Tablet) 1 Each Tablet 1 EACH PO BIDWM Cefuroxime Axetil (Cefuroxime) 500 Mg Tablet 500 MG PO BID Cholecalciferol (Vitamin D3) (Vitamin D) 1,000 Unit Tablet 1,000 UNIT PO DAILY Ferrous Sulfate (Iron) 325 Mg Tablet 325 MG PO QPM Furosemide (Furosemide) 40 Mg Tablet 40 MG PO 08,12 Gabapentin (Gabapentin) 300 Mg Capsule 600 MG PO HS Hydrocodone-Acetaminophen 5-325 mg (Hydrocodone-Acetaminophen 5-325 mg) 1 Each Tablet 1 EACH PO ACHS 4 tablets daily. Tablet at bedtime OR in the middle of the night. Insulin Lispro (HumaLOG U100 Insulin Pen) 100 Unit/1 Ml Insuln.pen 4 UNIT SUBQ TIDWM Levothyroxine (Levothyroxine) 50 Mcg Tablet 50 MCG PO DAILY Losartan Potassium (Losartan Potassium) 100 Mg Tablet 100 MG PO DAILY Metoprolol Tartrate (Metoprolol Tartrate) 50 Mg Tablet 50 MG PO BID NPH, Human Insulin Isophane (HUMulin-N U100 Insulin Kwikpen) 100 Unit/1 Ml Insuln.pen 12 UNIT SUBQ DAILYWM NPH, Human Insulin Isophane (HUMulin-N U100 Insulin Kwikpen) 100 Unit/1 Ml Insuln.pen 10 UNIT SUBQ DAILYWD Nystatin (Nystatin) 1 Each Powder.ea. 1 APPLIC TOPICAL BID to affected areas in abdominal folds, groin, under breasts. Omeprazole (Omeprazole) 20 Mg Capsule.dr 40 MG PO BID Oxybutynin Chloride ER (Oxybutynin Chloride ER) 5 Mg Tab.er.24 5-10 MG PO DAILY Polyethylene Glycol 3350 (Miralax) 17 Gm Powd.pack 17 GM PO DAILY Pramipexole Dihydrochloride (Mirapex) 0.5 Mg Tablet 0.5 MG PO HS 2-3 hours before bedtime. Prednisone (PredniSONE) 20 Mg Tablet 20 MG PO TID Simvastatin (Simvastatin) 20 Mg Tablet 20 MG PO HS Triamcinolone Acet (Triamcinolone Acetonide Ointment) 1 Applic/0.25 Gm Oint 60 APPLIC TOP BID Scheduled PRN Acetaminophen (Acetaminophen) 500 Mg Tablet 1,000 MG PO HS PRN PRN For Pain Avoid using together with Vicodin (Hydrocodone/acetaminophen). Cyclobenzaprine (Cyclobenzaprine) 5 Mg Tablet 5 MG PO TID PRN PRN Spasm Dextrin (Fiber) 350 Gm Powder 1-2 TBS PO HS PRN PRN For Constipation Temazepam (Temazepam) 7.5 Mg Capsule 7.5 MG PO HS PRN PRN For Insomnia Miscellaneous Medications Albuterol Sulfate (Proair Respiclick) 90 Mcg Aer.pow.ba 2 PUFFS IH General Time Seen by MD: 18:44 Chief Complaint Shortness of breath Hx Obtained From: Patient, EMS Arrived By: Ambulance Sudden in Onset?: No Symptom Duration: Since onset Severity: Current: No pain currently Severity: Maximum: No pain Recent Healthcare: Recent doctor visit Similar Sx Previous: No Past Medical History Past Medical History PER OLD REPORTS 1. Well documented in previous H and P's. 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 2. History of atrial fibrillation in the past. 3. Hypertension history. 4. Diabetes mellitus type 2. The patient is insulin dependent. 5. Obstructive sleep apnea. 6. Hyperlipidemia. 7. Hypothyroidism. 8. Depression. 9. Anxiety. 10. GERD. 11. Hiatal hernia. 12. Chronic back pain. 13. Osteoporosis. 14. L. leg edema status post fall 15. History of bilateral breast biopsy for bening disease. Reports: COPD, GERD, Hyperlipidemia Past Surgical History 1. Bilateral knee replacements. 2. Jessica fundoplication. 3. Bilateral breast biopsies. 4. Sigmoid colectomy. Smoking History Never Smoker Social History Alcohol Use: Denies alcohol use Drug Use: Denies drug use Other Social History: Local resident Ambulatory Status Walker Review of Systems Respiratory: Reports: Shortness of breath, Denies: Non-productive cough Musculoskeletal: Reports: Extremity pain Skin: Reports Swelling Complete sys rev & neg: except as marked. Neurologic: Reports: Problem walking Physical Exam Initial Vital Signs Vital Signs (First) Date Time Temp Pulse Resp B/P Pulse Ox O2 Delivery O2 Flow Rate FiO2 05/12/17 18:48 36.6 75 22 161/65 99 Room Air Initial VS: Reviewed ENT: Mucous membranes moist, Conjunctiva normal, No scleral icterus Abdomen / GI: Soft, Non-tender Extremities: Vascular intact, Neuro intact Skin: Warm, Dry, No cyanosis Neurologic: Alert, Oriented, Nonfocal Psychiatric: Mood/affect normal, Behavior normal General/Constitutional: Awake, Alert, Cooperative, Not toxic appearing Alertness: Positive: Confused (Mild) Appearance / Presentation: Positive: Obese Neck: Atraumatic, Full range of motion Respiratory / Chest: Atraumatic, Breath sounds = bilat Lungs diminished Cardiovascular: Heart rate NL, Regular rhythm, Heart sounds NL Pitting edema Lower Extremity / Pelvis / MS: Atraumatic, Full range of motion Obese, pitting edema, ecchymosis, palpable pedal pulses bilaterally Interpretation & Diagnostics Lab Results Interpretation Result Diagram: 05/12/17 1900 05/12/17 190 Test 05/12/17 19:00 White Blood Count 7.1th/mm3 (3.8-10.1) Red Blood Count 3.94mil/mm3 (3.90-5.20) Hemoglobin 11.1g/dL (12.0-15.6) Hematocrit 35.4% (35.0-46.0) Mean Corpuscular Volume 89.8fL (81-100) Mean Corpuscular Hemoglobin 28.2pg (27.0-35.0) Mean Corpuscular Hemoglobin Concent 31.4% (32.0-37.0) Red Cell Distribution Width 15.2% (12.3-15.4) Platelet Count 141bil/L (150-400) Neutrophils (%) (Auto) 79.1% (40-74) Lymphocytes (%) (Auto) 9.3% (14-46) Monocytes (%) (Auto) 9.5% (4-12) Eosinophils (%) (Auto) 1.7% (0-5) Basophils (%) (Auto) 0.1% (0-3) Sodium Level 134mEq/L (134-144) Potassium Level 4.5mEq/L (3.5-5.2) Chloride Level 96mEq/L (97-108) Carbon Dioxide Level 28mmol/L (18-29) Blood Urea Nitrogen 30mg/dL (8-27) Creatinine 1.03mg/dL (0.57-1.00) Estimat Glomerular Filtration Rate 73mL/min (>59) Glucose Level 217mg/dL (60-99) Calcium Level 8.7mg/dL (8.5-10.1) Magnesium Level 1.9mg/dL (1.6-2.6) Total Bilirubin 0.3mg/dL (0.0-1.2) Aspartate Amino Transf (AST/SGOT) 17U/L (0-50) Alanine Aminotransferase (ALT/SGPT) 14U/L (0-32) Alkaline Phosphatase 91U/L (25-165) Troponin T 0.132ug/L (0.0-0.011) Total Protein 6.5g/dL (6.4-8.4) Albumin 3.4g/dL (3.4-5.0) Procalcitonin 0.48ng/mL (0.00-0.08) Thyroid Stimulating Hormone (TSH) 1.530uIU/mL (0.450-4.500) Hold Henry Top Tube Received (Received) ECG Interpretation ECG Interpretation: Sinus rhythm with a rate of 71 Right bundle branch block Normal ST Time: 19:02 Interpreted by: ED physician CBC Interpretation Hgb low Cardiac / Vascular Interp Troponin abnormal X-Ray Chest Interpretation Chest Xray Interpretation: IMPRESSION: Mild cardiomegaly, unchanged. No acute pulmonary findings. Dictated by: Effie Bruce M.D. on 05/12/2017 at 20:04 View: Portable, AP & lat Interpretation / Wet Read by: Interpret - Radiologist Re-Eval/Medical Decision Med Decision/Clinical Course EKG showed sinus and a RBBB which is not new. Labs show an elevated troponin and normal GFR. UA shows signs of an infection. We will treat as an acute coronary syndrome with nitro, heparin and aspirin. Will treat the UTI with Rocephin and admit to hospitalist service. Source of Hx: Old records, EMS Consultation : Referral / Consult Name: Duran Roque MD Consulted With: Hospitalist Call Returned at: 21:52 Robotic Weld Technician: Agrees with eval, Agrees with plan Counseled Regarding: Diagnosis, Lab results, Need for follow-up, When/why to return to ED Discharge & Departure Shift Change Sign-Out Response to Therapy: Improved Impression: Primary Impression: Dyspnea Dyspnea type: dyspnea on exertion Qualified Code: R06.09 - Other forms of dyspnea Additional Impressions: Elevated troponin Urinary tract infection Urinary tract infection type: acute cystitis Hematuria presence: without hematuria Qualified Code: N30.00 - Acute cystitis without hematuria Disposition: Home Discharge Condition All VS Reviewed: Yes Condition: Stable Referrals: Napoleon Patterson DO (PCP) Tucker Attestation Portions of this note were transcribed by Mariangel Mcqueen. I, Dr. Bernal personally performed the history, physical exam and medical decision-making; I reviewed and confirmed the accuracy of the information in the transcribed note. Signed by: Tucker Ferraro, 05/12/17 and 21:00 copies to: Napoleon Patterson Todd P DO May 12, 2017 18:44 Mariangel Gonzales May 12, 2017 19:11
[2017-05-12 18:48] VITALS: BP 161/65; PULSE 75; RESP 22; O2SAT 99
[2017-05-12 19:12] LABS: BASOPHILS % (AUTO) 0.1 % (0-3); EOSINOPHILS % (AUTO) 1.7 % (0-5); MONOCYTES % (AUTO) 9.5 % (4-12); Mean Corpuscular Hemoglobin 28.2 pg (27.0-35.0); Mean Corpuscular Volume 89.8 fL (81-100); NEUTROPHILS % (AUTO) 79.1 % (40-74); Platelet Count 141 bil/L (150-400)
[2017-05-12 19:29] VITALS: BP 174/73; PULSE 72; RESP 21; O2SAT 100
[2017-05-12 19:50] LABS: TROPONIN T 0.132 ug/L (0.0-0.011)
--- NOTE | 2017-05-12 20:06 | DRSVH ---
PROCEDURE: X-RAY CHEST, TWO VIEWS ([id number]) INDICATIONS: dyspnea TECHNIQUE: 2 views of the chest were acquired. COMPARISON: [facility], CR, XR CHEST 1VW (PORTABLE), 12/05/2016, 19:57. FINDINGS: Surgical changes and devices: None. Lungs and pleura: No pleural effusions or pneumothorax. Lungs are clear. Mediastinum: Mediastinal contours are normal. Heart size is enlarged, as before. Bones and chest wall: No suspicious bony abnormalities. Soft tissues appear unremarkable. IMPRESSION: Mild cardiomegaly, unchanged. No acute pulmonary findings. Dictated by: Effie Bruce M.D. on 05/12/2017 at 20:04 Approved by: Effie Bruce M.D. on 05/12/2017 at 20:04
[2017-05-12 20:48] VITALS: BP 157/61; PULSE 74; RESP 21; O2SAT 100
[2017-05-12] MEDS ORDERED: Heparin 25K Unit/500mL 0.45 NS 25,000 UNIT in IV Premix 1 EACH IV SCH (21:45)
[2017-05-12] MEDS ORDERED: Heparin 5,000 Unit/mL Inj IVPUSH ONE (21:45)
[2017-05-12] MEDS ORDERED: Nitroglycerin 2% 1 Gm Ointment TOPICAL ONE (21:45)
[2017-05-12] MEDS ORDERED: Heparin 5,000 Unit/mL Inj IVPUSH PRN (21:45)
[2017-05-12] MEDS ORDERED: Alum-Mag Hydrox-Simeth 30 mL Suspension PO PRN (22:25)
[2017-05-12] MEDS ORDERED: Atropine 1 mg/10 mL (Code) Syringe IVPUSH PRN (22:25)
[2017-05-12] MEDS ORDERED: Polyethylene Glycol (PEG) 17 Gm Powder PO PRN (22:25)
[2017-05-12] MEDS ORDERED: Ondansetron 2 mg/mL 2 mL Inj IVPUSH PRN (22:25)
[2017-05-12] MEDS ORDERED: Senna-Docusate 8.6-50 mg Tablet PO PRN (22:25)
[2017-05-12 23:16] LABS: APPEARANCE,URINE SLIGHTLY CLOUDY (CLEAR,HAZY); COLOR,URINE YELLOW (YELLOW); OCCULT BLOOD,URINE MODERATE (NEGATIVE); UROBILINOGEN,URINE NORMAL (NORMAL)
[2017-05-12 23:17] LABS: Magnesium 1.9 mg/dL (1.6-2.6)
[2017-05-12] MEDS ORDERED: cefTRIAXone Inj 2,000 MG in Dextrose 5% Minibag Plus 50 ML IV ONE (23:20)
[2017-05-13] VITALS (13 sets, daily range): BP systolic 156–212; BP diastolic 67–87; PULSE 64–76; RESP 18–20; O2SAT 95–97
[2017-05-13] MEDS: 0.9% Sodium Chloride 1,000 ML IV SCH ×2 (00:37→12:32)
[2017-05-13] MEDS: Sodium Chloride LOK Flush 10 mL Syringe IVFLUSH SCH ×4 (00:39→22:30)
--- NOTE | 2017-05-13 01:58 | PCM.HPMED ---
Subjective Date of Service May 13, 2017 Primary Provider: Admitting Physician: Duran Roque MD Primary Care Physician: Napoleon Patterson DO Attending Physician: Duran Roque MD Admit Status: From the Emergency Department Chief Complaint: shortness of breath History of Present Illness: 86-year-old female with past medical history remarkable for diabetes mellitus, hypertension and hyperlipidemia hypothyroidism presents with acute shortness of breath. The patient states that she was in [place] having dinner when the nurse construction supervisor noticed that she was short of breath. The patient states that she seemed to have more difficulty ambulating back to her room due to the shortness of breath. She is also noticed a dry cough however this does not appear to be getting worse recently. The patient denied any chest pain or nausea associated with her shortness of breath however states that she is been having significant GERD symptoms recently which are also chronic in nature. The patient states that she does not feel like she has been recently sick and denies fever or chills. She states that she is not short of breath on lying flat but she has noticed increased leg swelling which is chronic in nature. The patient states that she has also been having headaches recently that she attributes to her right eye problem that she will be seeking surgery on within the next several weeks. Review of Systems: A comprehensive review of systems obtained and all are negative except for what is included in the history of present illness. Allergies Coded Allergies: Sulfa (Sulfonamide Antibiotics) (Verified Allergy, Unknown, 05/12/17) adhesive tape (Verified Allergy, Unknown, UNKNOWN, 05/12/17) meperidine (Verified Allergy, Unknown, 05/12/17) metformin (Verified Allergy, Unknown, 05/12/17) Tetanus and Diphtheria Toxoid (Verified Adverse Reaction, Severe, localized swelling, severe, 05/12/17) amitriptyline (Verified Adverse Reaction, Severe, hallucinations, 05/12/17) Opioids - Morphine Analogues (Verified Adverse Reaction, Intermediate, Nausea,Vomiting, 05/12/17) codeine (Verified Adverse Reaction, Intermediate, N&V, 05/12/17) states codiene causes nausea and vomiting, but taking Vicodin causes no problems for her. metformin HCl (Verified Adverse Reaction, Intermediate, Nausea, 05/12/17) Home Medications Per previous Hospital Records patient does not have a medication list with her today and Stacie was contacted does not administer her medications Per [facility] Records albuterol sulfate HFA 90 mcg/actuation aerosol inhaler inhale 2 puff by inhalation route every 4 - 6 hours as needed calcium carbonate 600 mg (1,500 mg) tablet take 1 by Oral route every day cyclobenzaprine 5 mg tablet take 1 tablet by oral route 3 times every day docusate sodium 100 mg tablet take 1 tablet by oral route every day at bedtime as needed Durable Medical Equipment one pair of diabetic shoes Durezol 0.05 % eye drops instill 1 drop by ophthalmic route 4 times every day into affected eye(s) ;start 24hrs post op x 2 wks; then 2 times/day x 7 days; then taper ferrous sulfate 325 mg (65 mg iron) tablet take 1 tablet by ORAL route every day fiber oral powder 1-2 tablespoon at night furosemide 40 mg tablet take 1 tablet by oral route every day gabapentin 300 mg capsule take 2 capsule by oral route QHS Humalog KwikPen 100 unit/mL subcutaneous inject by subcutaneous route 2 units ac for diabetes Humulin N KwikPen 100 unit/mL (3 mL) subcutaneous inject 12 U AM and 10 U PM for diabetes hydrocodone 5 mg-acetaminophen 325 mg tablet take 1 tablet by oral route every 4- 6 hours as needed for pain insulin syringe-needle U-100 0.3 mL 30 x 5/16" injects 4 times daily lancets use to test blood glucose levels 4 to 6 times daily for diabetes. levothyroxine 50 mcg tablet take 1 tablet by oral route every day losartan 100 mg tablet take 1 tablet by oral route every day Metamucil 3.4 gram/7 gram oral powder every daily Mirapex 0.5 mg tablet take 1 tablet (0.5MG) by oral route 2-3 hours before bedtime for RLS nitrofurantoin monohydrate/macrocrystals 100 mg capsule take 1 capsule by oral route every 12 hours with food nystatin 100,000 unit/gram topical powder apply by TOPICAL route 2 times every day to the affected area(s) omeprazole 20 mg capsule,delayed release 2 capsules PO bid OneTouch Verio strips Use to check BG 5 times daily Pen Needle 32 gauge x 5/32" ultra-fine pen needles simvastatin 20 mg tablet take 1 tablet by oral route every day in the evening temazepam 7.5 mg capsule take 1 capsule by oral route every day at bedtime as needed triamcinolone acetonide 0.1 % topical ointment 1 application BID to right lower extremity for 1-2 weeks Tylenol Extra Strength 500 mg Tab 2 tablets prn Vitamin C 500 mg tablet take 1 daily Vitamin D 1,000 unit Cap take 1 by Oral route every day PMH Hypothyroid DM type 2 insulin dependent Hx pulmonary embolism Ingrowing nail Cellulitis/stasis dermatitis Diverticulosis Rectal hyperplastic polyps Chronic lower extremity Edema Insomnia Restless legs syndrome Hyperlipemia gastroesophageal reflux disease Anemia, unspecified Paroxysmal Afib chronic low back pain Obstructive sleep apnea Gastroparesis Hiatal hernia Nonmelanoma skin cancer Surgical History Right total knee replacement 2012 EGD colonoscopy in 2010 Sigmoid colectomy 2012 Jessica fundoplication 1993 Bilateral breast biopsies Cardiac catheterization 2010 Cataract extraction Family History Son of a heart attack at 49 years old Father had hyperlipidemia and hypertension as well as a bleeding disorder and bowel perforation and cancer of unknown etiology Mother had hypertension and hyperlipidemia COPD Social History Occupation: retired nurse Hx Alcohol Use: No Hx Substance Use: No Hx Tobacco Use: No Smoking Status: Never Smoker Living Arrangement: Assisted Living ([place]) Exam Vital Signs Vital Sign - Last Date Time Temp Pulse Resp B/P Pulse Ox O2 Delivery O2 Flow Rate FiO2 05/13/17 00:45 36.7 68 18 165/74 97 Room Air Exam Constitutional: Elderly obese female in no acute distress lying comfortably in bed in no acute distress Eyes: Extraocular motion intact, Pupils are equal, round, and reactive to light , anicteric sclera noninjected conjunctiva HENT: Normocephalic and atraumatic, Oropharynx is clear and moist without central cyanosis or cobblestoning mucosa, light oropharyngeal exudate consistent with recent milk ingestion Neck: Supple, no tracheal deviation. Cardiovascular: Normal rate, regular rhythm. Equal and intact distal pulses throughout. Pulmonary/Chest: Effort normal and breath sounds normal. No respiratory distress. Abdominal: Soft. No distension. Nontender. There is no rebound or guarding. Bowel sounds present. Left-sided ostomy bag Extremities: 2+ pitting edema worse in left leg and right pulses intact in radial and dorsalis pedis bilaterally Neurological: AOx3. Grossly nonfocal exam. Skin: Warm and dry, venous stasis changes in the lower extremities bilaterally left worse than right Psychiatric: Appropriate mood and affect. Behavior appears normal. Lab and Diagnostics Result Diagram: 05/12/17189905/12/171899 X-Rays, CTs and MRIs X-RAY CHEST, TWO VIEWS IMPRESSION: Mild cardiomegaly, unchanged. No acute pulmonary findings. Dictated by: Effie Bruce M.D. on 05/12/2017 at 20:04 Approved by: Effie Bruce M.D. on 05/12/2017 at 20:04 Assessment & Plan 86-year-old female with past medical history remarkable for diabetes mellitus, hypertension and hyperlipidemia hypothyroidism presents with acute shortness of breath. # Elevated troponin with possible Non ST elevation NM. Present on admission - Patient presents with shortness of breath but denies chest pain or nausea symptoms, however given she is an elderly female with diabetes she is unlikely to have typical cardiac chest pain - Cardiac cath (01/19/10): No obstructive coronary artery disease. - Records indicate the patient has past medical history remarkable for DVT/PE however this was explained to be provoked after injuring her leg more than a decade ago, no history of lower extremity DVT since 2006 - EKG shows right bundle branch block normal sinus rhythm without ST changes - Heparin drip initiated in ED will be continued on floor, Cardiology have not been consulted yet - Telemetry monitoring - CK and CK-MB and troponins ordered and trending every 6 hours - D-dimer ordered, duplex ultrasound of left lower extremity also ordered - Repeat complete echocardiogram, last echo performed July 2015 - Continue outpatient medication including losartan 100 mg daily and simvastatin 20 mg daily # Urinary tract infection. Present on admission - UA shows positive nitrites positive leukocytes esterase however negative WBCs and negative bacteria - Ceftriaxone started by the ED # Chronic Systolic congestive heart failure - Echo (07/13/15): LVEF 60-65% with basal inferior wall and basal inferoseptal wall hypokinesis with significantly improved left ventricular function. - Patient does not appear to be having an acute exacerbation as she has chronic lower extremity edema with venous stasis changes and clear lung sounds - Continue outpatient medication furosemide 40 mg daily - Repeat echocardiogram # Diabetes mellitus type II insulin-dependent, with complications including neuropathy - Patient states that she has recently had her insulin regimen changed stating she is no longer on Humalog only on Humulin - Patient describes taking Humulin twice daily 60 units in the a.m. and 10 units in the p.m. - [facility] records indicate Humulin 12 units in the a.m. 10 units in the p.m. - Continue NPH 10 units twice a day - Correction scale lispro - Gabapentin 600 mg before bed # Hypothyroidism - TSH ordered and normal - Continue home levothyroxine 50 g daily # Restless leg syndrome - Continue home pramipexole 0.5 mg 2-3 hours before bedtime GI prophylaxis: Pantoprazole twice a day DVT prophylaxis: Heparin drip CODE STATUS DNR/DNI Patient is admitted for observation status given presenting symptoms, likely diagnosis, possible complications and necessary treatment expected length of stay less than 2 midnights. Pain Evaluation: Adequate Pain Control GI Prophylaxis: Proton Pump Inhibitor VTE Prophylaxis Indicated: Meets Criteria for Anticoag Therapy VTE Prophylaxis: Other (heparin drip) VTE Mechanical Devices: Intermittant Pneumatic CD Resuscitation Status: DNR/DNI:Do Not Resuscitate/Intubate Attending Statement The patient was seen and examined together with Dr. Mckinley on 05/12 and I agree with the history, exam and plan as outlined in the note above. Boris Bolanos DO May 13, 2017 01:58 Duran Roque MD May 13, 2017 03:53 Boris Bolanos DO May 13, 2017 01:58 Duran Roque MD May 13, 2017 03:53
[2017-05-13 02:19] LABS: Creatine Kinase 58 U/L (21-215)
--- NOTE | 2017-05-13 02:54 | NUR ---
Admit Pt arrived on unit #[id number] from ED via stretcher with all personal belongings. Able to transfer self to bed with 2P assist. VSS. Oriented to hospital policy and call light. Denies chest pain or cardiac discomfort. Reports SOB with exertion. CPOX HS, O2 sats, 95% on RA. Denies n/v. Pt unable to verify medications. Spoke with RN at [facility]. A list of pt meds unavailable. Sent fax to [facility] in [place]. Unable to contact pharmacy at [facility] will pass on to day shift RN. Allergy sticker placed on armband. Bed locked, low position. Non slip yellow socks and mark bed alarm for safety. Call light within reach, using appropriately. Frequent rounding in place. Pleasant and cooperative with care.
[2017-05-13] MEDS ORDERED: Glucose 40% Oral Gel 15 Gm Tube PO PRN (03:00)
[2017-05-13 03:03] LABS: Creatine Kinase 44 U/L (21-215)
[2017-05-13 03:04] LABS: TROPONIN T 0.141 ug/L (0.0-0.011)
[2017-05-13 07:54] LABS: BASOPHILS % (AUTO) 0.4 % (0-3); EOSINOPHILS % (AUTO) 1.9 % (0-5); Mean Corpuscular Hemoglobin 28.5 pg (27.0-35.0); Mean Corpuscular Volume 90.4 fL (81-100); NEUTROPHILS % (AUTO) 74.9 % (40-74); Platelet Count 134 bil/L (150-400)
[2017-05-13] MEDS: Insulin LISPRO 300 Unit/3 mL Inj SUBQ SCH ×4 (08:00→22:30)
[2017-05-13 08:17] LABS: Magnesium 1.9 mg/dL (1.6-2.6)
[2017-05-13 08:29] LABS: TROPONIN T 0.146 ug/L (0.0-0.011)
--- NOTE | 2017-05-13 08:40 | DRSVH ---
PROCEDURE: US VEINOUS LEG DUPLEX UNILATERAL, LEFT INDICATIONS: left leg pain and swelling TECHNIQUE: Real-time imaging, as well as color and pulse Doppler interrogation, were performed of the lower extr emity deep veins from the inguinal ligament to the popliteal fossa. COMPARISON: None. FINDINGS: The deep veins are normally compressible, and free of intraluminal thrombus. Color and pu lse Doppler demonstrate normal phasic intraluminal flow. There is normal augmentation response to di stal compression maneuver. IMPRESSION: No deep venous thrombosis identified within the left lower extremity. Dictated by: Venancio PINTO Interpreted: Nish Mcadams MD on 05/13/2017 at 8:38 Transcribed by: RAÚL on 05/13/2017 at 8:39 Approved by: Nish Mcadams M.D. on 05/13/2017 at 11:42
[2017-05-13] MEDS ORDERED: FURO40TA4 PO (09:15)
[2017-05-13] MEDS ORDERED: DOCU-41 PO (09:15)
[2017-05-13] MEDS ORDERED: DIFL5DRO BOTH_EYES (09:15)
[2017-05-13] MEDS ORDERED: DEXT350P5 PO (09:15)
[2017-05-13] MEDS ORDERED: CALC600T12 PO (09:15)
[2017-05-13] MEDS ORDERED: PSYL660P17 PO (09:23)
[2017-05-13] MEDS ORDERED: METO25TA6 PO (09:23)
[2017-05-13] MEDS ORDERED: PRAM0.5T3 PO (09:23)
[2017-05-13] MEDS ORDERED: OFLO5DRO9 AFFECT_EYE (09:27)
[2017-05-13] MEDS ORDERED: NITR100C PO (09:27)
--- NOTE | 2017-05-13 09:36 | NUR ---
Med Rec Pt unable to recall her home medications. Obtained med list from pt's PCP, Dr. Napoleon Esquivel Anddebo in [place]. Notified Hospitalist on Green Team that Med Rec was completed.
[2017-05-13] MEDS: Pantoprazole 40 mg ER24 Tablet PO SCH ×2 (09:57→17:29)
[2017-05-13] MEDS: Insulin Human NPH 100 Unit/mL 3 mL Inj SUBQ SCH ×2 (10:00→17:29)
--- NOTE | 2017-05-13 14:26 | NUR ---
Case Management: IMM given and explained to pt. Leyla BILLRN
--- NOTE | 2017-05-13 15:26 | NUR ---
Social Work-initial assessment: Data:See initial assessment. Pt is a 86 y/o female who was admitted on 05/12/17 for Dyspnea per H&P. Pt's insurance is [employer] and PCP is Napoleon Patterson DO. EMR reviewed. SW met with pt and son Young [phone] at bedside to discuss discharge planning, SW role explained. Pt is alert and oriented x3. Pt resides at [facility] where she remains independent with basic ADLS. Pt uses a fww at baseline and does not drive. Pt has no HH history and has been to SNF. Pt has no [employer] continuous churn care insurance or VA benefits. SW discussed DPOA/ advanced directive, pt confirms she has completed this, SW encouraged a copy to be brought in. Pt has an ostomy that she manages on her own. Pt anticipates to return to to [facility] at discharge. [facility] placed a call and spoke with Marjorie. Marjorie states SW will need to call closer to discharge and speak with Jalyn who will determine if pt is able to return without an assessment. Pt may benefit from PT evaluation. Son Young confirms he will provide transport back to facility when medically stable. SW provided phone number and plan on white board in room. SW will continue to follow. Assessment:Pt who resides at [facility]. Plan:Pt to likely discharge back to [facility] when medically stable. SW to call back to [place] closer to discharge and determine if they will need to complete bedside assessment. Pt may benefit from PT evaluation. RYLAND will continue to follow. NEELA Perez Addendum: 05/13/17 at 1545 by MAGALI CATHERINE Amended: Links added.
--- NOTE | 2017-05-13 15:48 | PCM.PNMED ---
Subjective Date of Service May 13, 2017 Subjective Denies any new issues/complaints. Denies any CP. She's not sure if she has SOB or not Exam Vital Signs Vital Sign - Last Date Time Temp Pulse Resp B/P Pulse Ox O2 Delivery O2 Flow Rate FiO2 05/13/17 14:30 36.3 68 20 196/77 95 Room Air Intake and Output 05/12/17 05/12/17 05/13/17 Cumulative From/Thru 15:00 23:00 07:00 05/12/17 18:48 - 05/13/17 06:02 Intake Total 300 ml 300 ml Balance 300 ml 300 ml Intake Oral 300 ml 300 ml # Voids 3 3 General: Alert, Oriented X3, Cooperative, No Acute Distress Head: Normal Eyes: Scleral Anicteric Nose: Mucous Membr Moist/[place] Mouth: Mucous Membr Moist/[place] Neck: Supple Chest & Lungs: Chest Wall Normal, Clear to auscultation & percussion Cardiovascular: Regular Rate/Rhythm Pulses: NL carotid, radial, femoral, DP, PT Abdomen: Non-tender, Non-distended, Normoactive bowel tones, Soft Extremities: No cyanosis/clubbing/edma bilat Neurological: Grossly Neurologically Intact, Normal Speech Additional Information: Psych: Calm, appropriate affect IVs and Medications Medications Reviewed: Medications were reviewed in detail Lab and Diagnostics Result Diagram: 05/13/1720905/13/17209 X-Rays, CTs and MRIs X-RAY CHEST, TWO VIEWS IMPRESSION: Mild cardiomegaly, unchanged. No acute pulmonary findings. Dictated by: Effie Bruce M.D. on 05/12/2017 at 20:04 Approved by: Effie Bruce M.D. on 05/12/2017 at 20:04 Assessment & Plan 86-year-old female with past medical history remarkable for diabetes mellitus, hypertension and hyperlipidemia hypothyroidism presents with acute shortness of breath. # Elevated troponin with possible Non ST elevation [place]. Present on admission - Cardiac cath (01/19/10): No obstructive coronary artery disease. - Will stop heparin drip at this time given no CP and significant HTN - Followup pending Echo - Continue to trend Trop until heads down - Cardiology consulted. Will followup with recs # Acute shortness of breath, present on admission. Ongoing - Unclear exact etiology and if cardiac in origin or not - DDimer mildly elevated on admission - Otherwise not tachycardic and without CP - Left LE U/S without DVT - Cardiac workup including Echo as noted above # Chronic hypertension. Poorly controlled at this time - Continue with home meds - IV Labetalol prn # Acute Urinary tract infection. Present on admission - UA shows positive nitrites positive leukocytes esterase however negative WBCs - Ceftriaxone started by the ED - Followup urine culture # Chronic Systolic congestive heart failure - Echo (07/13/15): LVEF 60-65% with basal inferior wall and basal inferoseptal wall hypokinesis with significantly improved left ventricular function. - Patient does not appear to be having an acute exacerbation as she has chronic lower extremity edema with venous stasis changes and clear lung sounds - Continue outpatient medication furosemide 40 mg daily - Repeat echocardiogram # Diabetes mellitus type II insulin-dependent, with complications including neuropathy - Patient describes taking Humulin twice daily 60 units in the a.m. and 10 units in the p.m. - [facility] records indicate Humulin 12 units in the a.m. 10 units in the p.m. - Continue NPH 10 units twice a day - Correction scale lispro - Gabapentin 600 mg before bed # Hypothyroidism - TSH ordered and normal - Continue home levothyroxine 50 g daily # Restless leg syndrome - Continue home pramipexole 0.5 mg 2-3 hours before bedtime Dispo: 1-2 days GI Prophylaxis: Proton Pump Inhibitor VTE Prophylaxis: Other VTE Mechanical Devices: Intermittant Pneumatic CD Resuscitation Status: DNR/DNI:Do Not Resuscitate/Intubate Nic Reinoso May 13, 2017 15:48
--- NOTE | 2017-05-13 15:49 | CONS ---
[address] [address] CONSULTATION REPORT PATIENT: KJ MONTOYA : 1930 MR#: [id number] ADMIT: 05/12/2017 JOB ID: [id number] DATE OF SERVICE: 05/13/2017 CARDIOLOGY CONSULTATION: CHIEF COMPLAINT: I was asked by the hospitalist for this consultation given a positive troponin. HISTORY OF PRESENT ILLNESS: The patient is an 86-year-old woman who basically is treated for diabetes, hypertension, hyperlipidemia and hypothyroidism. She says that she resides at [facility] in the assisted living. Meals are provided by the divernon. She said she was walking from the dining room and someone noticed that she was quite short of breath and that she had to stop. This persisted. She did not have any chest pain, chest pressure, chest tightness. She did not have any presyncope, syncope, nausea or vomiting. However, because of this, she was brought to the ED with evaluation of elevated troponins. Even in the ED, she was feeling some acute shortness of breath. However, this has now resolved. Currently she denies any problems with chest pain, chest pressure, orthopnea, PND. She has chronic lower extremity edema but this has not increased. She denies any sweatiness, palpitations. In fact she is most concerned that she is interested in eating and has not been able to get a full lunch at this juncture. Prior to this, she had no complaints of acute shortness of breath. No history of orthopnea, PND, chest pain, chest pressure. PAST MEDICAL HISTORY/PROBLEM LIST: 1. History of diabetes. 2. Hypothyroidism. 3. History of paroxysmal atrial fibrillation in the past. 4. Obstructive sleep apnea. MEDICATIONS: Home medications included: 1. Cyclobenzaprine. 2. Docusate. 3. Ferrous sulfate. 4. Furosemide 40 mg daily. 5. Gabapentin 2 capsules q.h.s. 6. Humalog and Humulin insulin. 7. Levothyroxine 50 mcg daily. 8. Losartan 100 mg daily. 9. Metamucil. 10. Mirapex. 11. Nitrofurantoin. 12. Simvastatin 20 mg q.h.s. 13. Temazepam as needed. ALLERGIES: And there are multiple including SULFA, ADHESIVE TAPE, MEPERIDINE, METFORMIN, TETANUS and DIPHTHERIA, AMITRIPTYLINE, OPIOIDS, CODEINE and METFORMIN. SOCIAL HISTORY: No alcohol use. Never smoker. FAMILY HISTORY: No early coronary artery disease although her son had a heart attack at age 49. REVIEW OF SYSTEMS: Overall health: No fevers, chills, night sweats, or weight loss. GI: She denies any nausea, vomiting, blood in her stool. : No dysuria or hematuria. Pulmonary: Sudden increased shortness of breath which started yesterday that seems to have resolved by her report. Cardiac: As per HPI. Endocrine: No heat or cold intolerance. Heme: No easy bruising or bleeding. Neuro: She described several weeks of chronic headaches. These are somewhat sharp in nature and she says that she has been trying to adjust her medications to control these. These are not associated with nausea or vomiting. Musculoskeletal: She has chronic low back pain with sciatica for which she has been given Vicodin for pain. She is trying to titrate herself off the Vicodin. Derm: Note no skin breakdown. No new rashes. Psych: No acute issues, also no acute vision changes. All other review of systems on a 12-point review of systems is negative. PHYSICAL EXAMINATION: Blood pressure is elevated 195/80. She is afebrile. Heart rate 65. Sats are 96% on room air. General: In no acute distress. Speaking in full sentences without apparent shortness of breath. Head and neck examination: Normocephalic, atraumatic. Neck: No carotid bruits appreciated. Heart examination: Regular rate and rhythm. I do not appreciate obvious murmurs, gallops or rubs appreciated. Lungs clear to auscultation anteriorly. Back: No CVA tenderness to palpation. Abdomen: Soft, nontender. Extremities: Warm with possible swelling, but no clear edema at the ankles. Vascular: No carotid bruits appreciated. 1+ distal pulses. Skin with some chronic skin changes on the lower extremities but no breakdown. Neuro: Alert and interactive gait is not tested. Psych: Appropriate mood and affect. ENT: Mucous membranes are moist. Ophtho: Vision grossly intact. CURRENT MEDICATIONS: Include: 1. Metoprolol 12.5 b.i.d. 2. Heparin per protocol. 3. Lasix 40 mg b.i.d. 4. Levothyroxine 50 mcg daily. 5. Aspirin 81 mg a day. 6. Losartan 100 mg day. 7. Detrol LA. 8. Albuterol. LABORATORIES: Labs show a white count 6.9, H and H 10.1 and 32.1. Platelets of 134,000, seems to be stable. Chemistry shows sodium 135, potassium 4.3, chloride and bicarb 9 and 22 respectively. BUN and creatinine 27 and 1.05. Troponins in the range of 0.14 without significant change. IMAGING: Shows a chest x-ray that shows mild cardiomyopathy with cardiomegaly without any acute pulmonary findings. OTHER STUDIES: An echo was performed in 2014. EF was estimated at 60%-65%. Right ventricular function was normal. There was felt to be basal inferior wall hypokinesis and inferoseptal wall hypokinesis. No significant valvular pathology was appreciated. An echo is pending today but not available as yet. A cardiac catheterization was performed in 2009 and this showed no significant coronary disease. An EKG was obtained. I cannot find this to review but this was read as showing right bundle branch block. IMPRESSION: The patient has no history of coronary disease although an echocardiogram in 2014 commented on basal inferior and inferoseptal hypokinesis with preserved LV systolic function. She develops somewhat acute shortness of breath which now has resolved per her report. She has never had chest pain, chest pressure. She does have elevated troponins. PLAN: 1. I think keep her on heparin for now. Keep her on aspirin. 2. I will review the echocardiogram to see if there are any new wall motion abnormalities. Either way I will speak with the patient if she wants us to do any further interventions such as cardiac catheterization. She seems to be feeling well right now and again I will review the echo and have a chat with her once that is available. ADDITIONAL INFORMATION: I discussed the echocardiogram findings showing preserved LV systolic function with possible hypokinesis of the inferolateral wall, although on the last echo, there was hypokinesis mentioned of the basal inferior wall so this may be all the same. She has headache and elevated blood pressures. I have discussed with the hospitalist team. We are going to at least do a scan to make sure there is no pathologic process contributing to these headaches. I also discussed her shortness of breath and the elevated troponin. She would be leaning toward conservative management, as long as she is able to recover pretty closely back to her baseline. The plan is for her to get her headache worked up with some type of scan and then see how she feels walking around, see if she has continued shortness of breath or any problems with chest pain, arrhythmias. If that is the case, then we can further discuss more invasive methods of Assessment such as cardiac catheterization. Addenda added by BECKA 05/14/17 at 12:05pm I spent 53 minutes reviewing the patient's records, interviewing her and discussing her case with family, examining her and discussing her case with the hospitalist KURT
[2017-05-13] MEDS ORDERED: Labetalol 5 mg/mL 4 mL Inj IVPUSH PRN (15:50)
[2017-05-13] MEDS ORDERED: Albuterol 2.5 mg/3 mL Inhalation Solution NEB PRN (16:00)
--- NOTE | 2017-05-13 16:11 | DRSVH ---
[facility] [address] [place] [address] Echocardiogram Report Name: KJ MONTOYA JStudy Date: 05/13/2017 Height: 61 in Hospital Exam Location: [facility] Weight: 205 lb Gender: Female BSA: 1.9 m2 : 1930 Age: 86 yrs BP: 156/71 mmHg Reason For Study: Dyspnea Ordering Physician: Performed By: Elizabeth Valdez Referring Physician: Napoleon Patterson Interpretation Summary The left ventricle is normal in size. The ejection fraction is estimated to be 50-55%. Inferolateral hypokinesis. There is severe biatrial enlargement. A patent foramen ovale is present. There is mild tricuspid regurgitation. The right ventricular systolic pressure is estimated at 53 mmHg assuming a right atrial pressure of 8 mm Hg. Procedure: A two-dimensional transthoracic echocardiogram with color flow and Doppler was performed. The study quality was technically adequate. Comparison is made with the echocardiogram of 07-13-15. The heart rate ranged between 62-73 bpm during the study. Left Ventricle: The left ventricle is normal in size. There is normal left ventricular wall thickness. The ejection fraction is estimated to be 50-55%. Inferolateral hypokinesis. Assessment of diastolic parameters indicates normal left ventricular diastolic function and normal filling pressures. Right Ventricle: The right ventricle is normal in size and function. Atria: The left atrium is severely dilated. There is severe biatrial enlargement. The right atrium is severely dilated. A patent foramen ovale is present. Mitral Valve: The mitral valve leaflets appear mildly thickened, but open well. There is mild mitral annular calcification. There is trace mitral regurgitation. Aortic Valve: The aortic valve opens well. No aortic regurgitation is present. Tricuspid Valve: The tricuspid valve leaflets are thin and pliable. There is mild tricuspid regurgitation. The right ventricular systolic pressure is estimated at 53 mmHg assuming a right atrial pressure of 8 mm Hg. Pulmonic Valve: The pulmonic valve is not well seen, but is grossly normal. There is mild pulmonic regurgitation. Great Vessels: The aortic root is normal size. The ascending aorta is at the upper limits of normal in size. The IVC is dilated (diameter is greater than 2.1 cm) yet it collapses greater than 50% with a sniff. This suggests a right atrial pressure of 8 mm Hg. Pericardium/ Pleura There is no pericardial effusion. There is no pleural effusion. MMode/2D Measurements & Calculations LVIDd: 5.1 cm LA dimension: 4.5 cm RA long axis Ao root diam LVIDs: 3.0 cm FS: 40.1 % LA A2 area: 30.8 cm RA area Aortic Jxn IVSd: 1.0 cm LA A4 area: 34.4 cm LVPWd: 0.77 cm LA length (vol): 7.2 cm : 26.2 cm asc Aorta LA vol: 125.6 ml RA vol Diam: 3.5 cm LA vol index : 100.ml RA : 52.8 mm/ IVC diam: 2.4 cm RVDd major : 5.4 cm LV blanco. diameter/BSA LV sys. diameter/BSA RVD1 (basal) RVD2 (mid) (cm/m^2): 2.7 (cm/m^2): 1.6 : 3.4 cm Doppler Measurements & Calculations Ao V2 max MV E max kyrie MV E/A: 1.2 TR max kyrie : 146.4 cm/sec : 136.7 cm/sec Med Peak E' Kyrie : 335.3 cm/sec Ao max PG MV A max kyrie TR max PG : 8.6 mmHg : 112.9 cm/sec E/E' med: 39.4 : 45.0 mmHg Ao mean PG MV P1/2t: 56.7 msec Lat Peak E' Kyrie PA V2 max : 4.5 mmHg : 113.6 cm/sec E/E' lat: 20.6 PA mean PG E/e' average: 30.0 MV A dur: 0.12 sec PA Accel Time : 0.13 sec MV dec time MV P1/2t max kyrie Ao V2 mean PA V2 mean : 0.19 sec : 97.4 cm/sec : 73.2 cm/sec MVA(P1/2t): 3.9 cm2 Ao V2 VTI: 38.4 cm Electronically signed by: Didier Webb on Reading Physician:05/13/2017 04:10 PM
--- NOTE | 2017-05-13 19:12 | NUR ---
Blood pressure pt with elevated blood pressure. SBP 180-200. MD informed. PRN labetalol given per md order follow up blood improved to 170s systolically. will continue to monitor.
--- NOTE | 2017-05-13 20:33 | NUR ---
CT SCAN Pt refused CT scan stating, "I talked to the female doctor and she agreed I did not need a CT scan. I want to talk to my son first." Son, Young called. No answer. Left message on cell phone at 2024. notified. CT on hold until tomorrow. Pt verbalized understanding and agrees with plan to wait on CT until she talks to her son, Young. Pt reports headache resolved at this time. Call light within reach. Will continue to monitor. Addendum: 05/13/17 at 2038 by MICAELA OLSON RN CT CANCELLED by at 2038
[2017-05-13] MEDS: Nystatin 100,000 Unit/Gm 15 Gm Powder TOPICAL SCH (22:29)
[2017-05-13] MEDS: cefTRIAXone Inj 2,000 MG in Dextrose 5% Minibag Plus 50 ML IV SCH (22:29)
[2017-05-13] MEDS: HYDROcodone-APAP 5-325 mg Tablet PO PRN (22:36)
[2017-05-14] VITALS (7 sets, daily range): BP systolic 145–197; BP diastolic 67–93; PULSE 60–70; RESP 16–18; O2SAT 94–98
[2017-05-14 06:55] LABS: Mean Corpuscular Hemoglobin 27.7 pg (27.0-35.0); Mean Corpuscular Volume 89.8 fL (81-100)
[2017-05-14 08:08] LABS: Magnesium 2.1 mg/dL (1.6-2.6)
[2017-05-14 08:11] LABS: TROPONIN T 0.082 ug/L (0.0-0.011)
[2017-05-14] MEDS: Pantoprazole 40 mg ER24 Tablet PO SCH ×2 (08:13→17:14)
[2017-05-14] MEDS: Tolterodine ER 4 mg ER24 Capsule PO SCH (08:13)
[2017-05-14] MEDS: Nystatin 100,000 Unit/Gm 15 Gm Powder TOPICAL SCH ×2 (08:15→22:08)
[2017-05-14] MEDS: Sodium Chloride LOK Flush 10 mL Syringe IVFLUSH SCH ×2 (08:16→17:14)
[2017-05-14] MEDS: Insulin LISPRO 300 Unit/3 mL Inj SUBQ SCH ×4 (08:18→22:00)
[2017-05-14] MEDS: Insulin Human NPH 100 Unit/mL 3 mL Inj SUBQ SCH ×2 (08:19→17:19)
[2017-05-14] MEDS ORDERED: Labetalol 5 mg/mL 20 mL Inj IVPUSH ONE (08:30)
[2017-05-14] MEDS ORDERED: Insulin Human NPH 100 Unit/mL Syringe SUBQ SCH (08:30)
--- NOTE | 2017-05-14 12:36 | DRSVH ---
PROCEDURE: CT BRAIN WITHOUT CONTRAST ([id number]) INDICATIONS: headache TECHNIQUE: Noncontrast 4.5 mm thick angled axial sections acquired from the foramen magnum to the vertex, with c oronal reformats. COMPARISON: None. FINDINGS: Image quality: Excellent. CSF spaces: Basal cisterns are patent. No extra-axial fluid collections. The ventricles are symmet sebastien in size and shape. Brain: No intracranial bleeds or masses. There is cerebral volume loss for age, with resultant vent ricular and sulcal prominence. There are periventricular and deep white matter chronic small vessel ischemic changes. There is intracranial internal carotid artery and vertebral artery atherosclerosis . Skull and face: Calvarium and visualized facial bones appear intact, without suspicious lesions. Sinuses: Visualized sinuses and mastoids are clear. IMPRESSION: No acute intracranial disease process. Dictated by: Tamiko Licona MD, PhD on 05/14/2017 at 12:33 Approved by: Tamiko Licona MD, PhD on 05/14/2017 at 12:35
--- NOTE | 2017-05-14 13:44 | NUR ---
NURSING DAYS 7-7 LABS-Trop 0.082 trending down, Plt 140 NEURO- CT (-), C/O ORTIZ, LOC X4 CVS- BP 170'S, ECHO (55), T- Sinus ozzy 50's PLUM- RA 94% Resp rate 20, SOB with activity - Colostomy - UTI (+) SKIN- Bilat LE edema, fungal ABD/groin/breast PAIN- Denies IV-S/L PLAN- Cardiology consult, PT/ambulate Pt. Addendum: 05/14/17 at 1814 by HILDA BLACKBURN RN Patient ambulated 50ft with front wheel walker, denied shortness of breath. Patient up in chair for more than two hours. Flight/Transport Nurse in to see patient and adjustment made to BP medications.
--- NOTE | 2017-05-14 14:18 | NUR ---
spiritual care; routine conversational visit. pt tearful as she described changes and stress she is under. she reported on medical events and the process of transitioning to [facility] including grief as she closes and sells her home of 40 years. Supportive family and pt described one big source of meaning and hope is anticipating a trip to [place] to see granddtrs.
--- NOTE | 2017-05-14 15:56 | PCM.PNMED ---
Subjective Date of Service May 14, 2017 Subjective Denies any new issues/complaints. Denies any CP. Exam Vital Signs Vital Sign - Last Date Time Temp Pulse Resp B/P Pulse Ox O2 Delivery O2 Flow Rate FiO2 05/14/17 12:36 36.3 60 170/78 94 Room Air 05/14/17 07:52 18 Intake and Output 05/13/17 05/13/17 05/14/17 Cumulative From/Thru 15:00 23:00 07:00 05/12/17 18:48 - 05/14/17 06:36 Intake Total 2607 ml 450 ml 3357 ml Output Total 2 ml 2 ml Balance 2605 ml 450 ml 3355 ml Intake Oral 1012 ml 450 ml 1762 ml IV Total 1595 ml 1595 ml Output Stool Total 2 ml 2 ml # Voids 6 4 13 # Bowel Movements 0 0 Exam General: Alert, No Acute Distress Head: Normal Eyes: Scleral Anicteric Nose: Mucous Membr Moist/[place] Mouth: Mucous Membr Moist/[place] Neck: Supple Chest & Lungs: Chest Wall Normal, Clear to auscultation bilat Cardiovascular: Regular Rate/Rhythm Abdomen: Non-tender, Non-distended, Normoactive bowel tones, Soft Extremities: No cyanosis/clubbing/edema bilat Neurological: Grossly Neurologically Intact, Normal Speech Psych: Calm, appropriate affect IVs and Medications Medications Reviewed: Medications were reviewed in detail Lab and Diagnostics Result Diagram: 05/14/17 0625 05/14/17 0625 X-Rays, CTs and MRIs X-RAY CHEST, TWO VIEWS IMPRESSION: Mild cardiomegaly, unchanged. No acute pulmonary findings. Dictated by: Effie Bruce M.D. on 05/12/2017 at 20:04 Approved by: Effie Bruce M.D. on 05/12/2017 at 20:04 Assessment & Plan 86-year-old female with past medical history remarkable for diabetes mellitus, hypertension and hyperlipidemia hypothyroidism presents with acute shortness of breath. # Possible acute Non ST elevation [place]. Present on admission - Cardiac cath (01/19/10): No obstructive coronary artery disease. - Echo 05/13: EF 50-55% and Inferolateral hypokinesis - Appreciate cardiology consult. Will followup with recs - ? Cardiac cath vs medical management - Further cardiac medication adjustment per cardiology # Acute shortness of breath, present on admission. Resolved. - Unclear exact etiology and if cardiac in origin or not - DDimer mildly elevated on admission - Otherwise not tachycardic and without CP - Left LE U/S without DVT - Cardiac workup as noted above # Chronic hypertension. Poorly controlled at this time - Continue with home meds - Will add PO Hydralazine - IV Labetalol prn - Further management per cardiology # Acute E. Coli Urinary tract infection. Present on admission - Continue with Ceftriaxone started by the ED (day 3) # Chronic Systolic congestive heart failure. ongoing - Patient does not appear to be having an acute exacerbation as she has chronic lower extremity edema with venous stasis changes and clear lung sounds - Continue outpatient medication furosemide 40 mg daily # Diabetes mellitus type II insulin-dependent, with complications including neuropathy - Patient describes taking Humulin twice daily 60 units in the a.m. and 10 units in the p.m. - [facility] records indicate Humulin 12 units in the a.m. 10 units in the p.m. - Continue NPH 10 units twice a day - Correction scale lispro - Gabapentin 600 mg before bed # Hypothyroidism - TSH ordered and normal - Continue home levothyroxine 50 g daily # Restless leg syndrome - Continue home pramipexole 0.5 mg 2-3 hours before bedtime Dispo: 2-3 days GI Prophylaxis: Proton Pump Inhibitor VTE Prophylaxis: Other VTE Mechanical Devices: Intermittant Pneumatic CD Resuscitation Status: DNR/DNI:Do Not Resuscitate/Intubate Nic Reinoso May 14, 2017 15:56
--- NOTE | 2017-05-14 17:44 | PROG NOTE ---
[address] [address] PROGRESS NOTE PATIENT: KJ MONTOYA : 1930 MR#: [id number] ADMIT: 05/12/2017 JOB ID: [id number] DATE: 05/14/2017 CHIEF COMPLAINT: The patient is doing well. She denies chest pain, chest pressure. She said she got around and did not have any shortness of breath. She feels a little tired. Her blood pressures have been quite elevated and she did get a dose of labetalol and her blood pressure came down nicely. CURRENT MEDICATIONS: Include Lasix 40 mg b.i.d., losartan 100 mg daily, and a very low-dose metoprolol 12.5 b.i.d. I assume this is because there is concern about heart rates. I have reviewed her heart rates over the last 24 hours and most these are in the 60s to 70s. Apparently there were some lower heart rates which were seen this morning but I mass in those were associated with rest. PHYSICAL EXAMINATION: Blood pressure is now 147/74, heart rate 68. She is afebrile. Sats are 90% on room air. General: In no acute distress. Speaking in full sentences without apparent shortness of breath. Head and neck: Normocephalic, atraumatic. Heart: Regular rate and rhythm. Lungs: Clear to auscultation anteriorly. Abdomen: Soft. LABORATORIES: Today show white count 6.1, an H and H 10.9/35.3, platelets 140,000. Chemistry today shows sodium 139, potassium 3.9, chloride and bicarb 100 and 28 respectively, BUN and creatinine 20 and 1. Troponins have now trended down. IMPRESSION: The patient is doing well. As discussed yesterday she would like to maintain a conservative pathway for treatment unless there are some changes that necessitate invasive procedures such as coronary angiography. PLAN: 1. I think we should increase her metoprolol to 25 b.i.d. to get better blood pressure control and as long as her heart rate remains reasonable we could increase that as well. 2. If she ultimately decides that she does not want to have an angiogram, then we should put her on Plavix daily in addition to an increase in metoprolol. I am going to increase the metoprolol dose myself right now.
[2017-05-14] MEDS: HYDROcodone-APAP 5-325 mg Tablet PO PRN (22:07)
[2017-05-14] MEDS: cefTRIAXone Inj 2,000 MG in Dextrose 5% Minibag Plus 50 ML IV SCH (22:08)
[2017-05-15] VITALS (8 sets, daily range): BP systolic 139–169; BP diastolic 67–89; PULSE 50–73; RESP 16–20; O2SAT 93–96
[2017-05-15] MEDS: Sodium Chloride LOK Flush 10 mL Syringe IVFLUSH SCH ×3 (00:30→16:44)
--- NOTE | 2017-05-15 01:21 | NUR ---
O2 Sats Pt desating to low 80's then bouncing back up to mid 90's while sleeping, RA. Started pt on 1L O2 with oxymask HS. Continuous pulse ox with O2 sats 96%. Will continue to monitor. Call light within reach. Frequent rounding in place. Cooperative with care.
[2017-05-15] MEDS: Pantoprazole 40 mg ER24 Tablet PO SCH ×2 (08:43→16:44)
[2017-05-15] MEDS: Tolterodine ER 4 mg ER24 Capsule PO SCH (08:43)
[2017-05-15] MEDS: Insulin LISPRO 300 Unit/3 mL Inj SUBQ SCH ×4 (08:45→23:26)
[2017-05-15] MEDS: Insulin Human NPH 100 Unit/mL 3 mL Inj SUBQ SCH ×2 (08:46→16:45)
[2017-05-15] MEDS: Nystatin 100,000 Unit/Gm 15 Gm Powder TOPICAL SCH ×2 (08:46→23:13)
[2017-05-15] MEDS: HYDROcodone-APAP 5-325 mg Tablet PO PRN ×2 (10:53→23:25)
--- NOTE | 2017-05-15 11:38 | NUR ---
Social Work: Readiness for d/c Data: Pt is on day 3 of hospitalization. EMR reviewed. Pt discussed in rounds, MD states pt likely to d/c today pending heart cath decision. TOOL CRIB SUPERVISOR called [facility] and spoke with Jalyn with the [facility] suites who states they do not need to reassess pt prior to d/c today. TOOL CRIB SUPERVISOR will continue to follow. Assessment: Pt from [facility]. Plan: Pt will d/c home to [facility] likely today per MD via POV with son. No bedside assessment needed per Jalyn with [facility]. TOOL CRIB SUPERVISOR will continue to follow. NEELA Davis
--- NOTE | 2017-05-15 12:37 | NUR ---
Pain Patient had complaints of neck/back pain of 9/10. Nurse administered 1 tab [place] 5/325. Pain medication was effective with decreasing pain to 7/10 after 20 minutes.
--- NOTE | 2017-05-15 14:00 | NUR ---
Ambulation Patient asked nurse and PUBLIC HEALTH WORKER to walk. Patient was assisted out of bed with 1 person assist. Patient used FWW with SBA for ambulation with PUBLIC HEALTH WORKER for 20 feet in the hallway then back to bedside chair for lunch.
--- NOTE | 2017-05-15 14:09 | NUR ---
Physical Therapy: Recommend pt continue to walk with nursing staff with FWW and SBA, distance as tolerated by pt. Recommend gait 2-3 times per day.
--- NOTE | 2017-05-15 14:09 | NUR ---
Evaluation completed. Please go to "Notes" then click on "Assessments and Notes" (bottom left corner of screen). Then select appropriate discipline tab on top of screen.
--- NOTE | 2017-05-15 14:50 | NUR ---
VANDANA Signed @ 230PM
--- NOTE | 2017-05-15 14:51 | NUR ---
Social Work: Readiness for d/c Data: Pt is on day 3 of hospitalization. EMR reviewed, UTILITY ASSEMBLER acknowledges MD order to set up HH. UTILITY ASSEMBLER will follow up with pt regarding choice on 05/16. NEELA Davis
--- NOTE | 2017-05-15 16:16 | PCM.PNMED ---
Subjective Date of Service May 15, 2017 Subjective Denies any new issues/complaints. Denies any CP. Exam Vital Signs Vital Sign - Last Date Time Temp Pulse Resp B/P Pulse Ox O2 Delivery O2 Flow Rate FiO2 05/15/17 14:20 71 05/15/17 12:29 36.4 18 168/89 96 Room Air Intake and Output 05/14/17 05/14/17 05/15/17 Cumulative From/Thru 15:00 23:00 07:00 05/12/17 18:48 - 05/15/17 06:28 Intake Total 1754 ml 400 ml 5511 ml Output Total 2 ml 4 ml Balance 1754 ml 398 ml 5507 ml Intake Oral 1754 ml 400 ml 3916 ml IV Total 1595 ml Output Stool Total 2 ml 4 ml # Voids 7 5 25 # Bowel Movements 0 Exam General: Alert, No Acute Distress Head: Normal Eyes: Scleral Anicteric Nose: Mucous Membr Moist/[place] Mouth: Mucous Membr Moist/[place] Neck: Supple Chest & Lungs: Chest Wall Normal, Clear to auscultation bilat Cardiovascular: Regular Rate/Rhythm Abdomen: Non-tender, Non-distended, Normoactive bowel tones, Soft Extremities: No cyanosis/clubbing/edema bilat Neurological: Grossly Neurologically Intact, Normal Speech Psych: Calm, appropriate affect IVs and Medications Medications Reviewed: Medications were reviewed in detail Lab and Diagnostics Result Diagram: 05/14/1762405/14/17624 X-Rays, CTs and MRIs X-RAY CHEST, TWO VIEWS IMPRESSION: Mild cardiomegaly, unchanged. No acute pulmonary findings. Dictated by: Effie Bruce M.D. on 05/12/2017 at 20:04 Approved by: Effie Bruce M.D. on 05/12/2017 at 20:04 Assessment & Plan 86-year-old female with past medical history remarkable for diabetes mellitus, hypertension and hyperlipidemia hypothyroidism presents with acute shortness of breath. # Acute Non ST elevation [place]. Present on admission - Cardiac cath (01/19/10): No obstructive coronary artery disease. - Echo 05/13: EF 50-55% and Inferolateral hypokinesis - Appreciate cardiology consult. Will followup with recs - Continue with medical management - Further cardiac medication adjustment per cardiology # Acute shortness of breath, present on admission. Resolved. - Unclear exact etiology and if cardiac in origin or not - DDimer mildly elevated on admission - Otherwise not tachycardic and without CP - Left LE U/S without DVT - Cardiac workup as noted above # Chronic hypertension. Poorly controlled at this time - Metoprolol increased to 25mg bid per cardiology on 05/14 - ? add PO Hydralazine - IV Labetalol prn - Further management per cardiology # Acute E. Coli Urinary tract infection. Present on admission - Continue with Ceftriaxone started by the ED (day 4) # Chronic Systolic congestive heart failure. ongoing - Patient does not appear to be having an acute exacerbation as she has chronic lower extremity edema with venous stasis changes and clear lung sounds - Continue outpatient medication furosemide 40 mg daily # Diabetes mellitus type II insulin-dependent, with complications including neuropathy - Patient describes taking Humulin twice daily 60 units in the a.m. and 10 units in the p.m. - [facility] records indicate Humulin 12 units in the a.m. 10 units in the p.m. - Continue NPH 10 units twice a day - Correction scale lispro - Gabapentin 600 mg before bed # Hypothyroidism - TSH ordered and normal - Continue home levothyroxine 50 g daily # Restless leg syndrome - Continue home pramipexole 0.5 mg 2-3 hours before bedtime Dispo: likely tomorrow if decide to manage conservatively instead of cath and pending better BP control GI Prophylaxis: Proton Pump Inhibitor VTE Prophylaxis: Other VTE Mechanical Devices: Intermittant Pneumatic CD Resuscitation Status: DNR/DNI:Do Not Resuscitate/Intubate Nic Reinoso May 15, 2017 16:16
[2017-05-15] MEDS: Heparin 5,000 Unit/mL Inj SUBQ SCH ×2 (16:44→23:26)
--- NOTE | 2017-05-15 20:37 | PROG NOTE ---
[address] [address] PROGRESS NOTE PATIENT: KJ MONTOYA : 1930 MR#: [id number] ADMIT: 05/12/2017 JOB ID: [id number] DATE: 05/15/2017 CHIEF COMPLAINT: The patient is doing well. She got up to walk. No chest pain, no increased shortness of breath. PHYSICAL EXAMINATION: Blood pressures are still somewhat elevated, some in the 140s, others in the 170 systolic. LABORATORIES: No labs were obtained today. MEDICATIONS: 1. Insulin. 2. Pantoprazole. 3. Losartan 100 mg daily. 4. Atorvastatin. 5. Metoprolol 25 b.i.d. IMPRESSION: The patient's blood pressure is still somewhat elevated. I am going to try to increase her metoprolol a little bit more to see if we can get better blood pressure control.
[2017-05-15] MEDS: cefTRIAXone Inj 2,000 MG in Dextrose 5% Minibag Plus 50 ML IV SCH (23:13)
[2017-05-16] VITALS (9 sets, daily range): BP systolic 141–170; BP diastolic 69–93; PULSE 58–82; RESP 16–22; O2SAT 94–99
[2017-05-16] MEDS: Sodium Chloride LOK Flush 10 mL Syringe IVFLUSH SCH ×5 (00:58→23:48)
--- NOTE | 2017-05-16 05:03 | NUR ---
Pain: Pt c/o neck pain 5/10 prior to HS; medication administered, effective. Pt denied chest pain and SOB, RA with cont pulse ox throughout the night, pt would dip down into the 80's and bounce back into the 90's. Pt slept most of the night, pleasant and cooperative with care.
[2017-05-16] MEDS: Insulin Human NPH 100 Unit/mL 3 mL Inj SUBQ SCH ×2 (08:01→17:04)
[2017-05-16] MEDS: Insulin LISPRO 300 Unit/3 mL Inj SUBQ SCH ×4 (08:01→21:25)
[2017-05-16] MEDS: Heparin 5,000 Unit/mL Inj SUBQ SCH ×3 (08:03→23:48)
[2017-05-16] MEDS: Pantoprazole 40 mg ER24 Tablet PO SCH ×2 (08:04→17:05)
[2017-05-16] MEDS: Nystatin 100,000 Unit/Gm 15 Gm Powder TOPICAL SCH ×2 (08:06→21:17)
[2017-05-16] MEDS: Tolterodine ER 4 mg ER24 Capsule PO SCH (08:09)
[2017-05-16] MEDS: HYDROcodone-APAP 5-325 mg Tablet PO PRN ×2 (14:05→21:16)
--- NOTE | 2017-05-16 14:42 | NUR ---
Social Work: Readiness for d/c Data: Pt is on day 4 of hospitalization. EMR reviewed. PRESS OPERATOR HEAVY DUTY met with pt regarding HH choice, HH choice list given, no preference stated. [facility] after considering vendor calendar. Spoke with Elizabeth, referral faxed to them. PRESS OPERATOR HEAVY DUTY will continue to follow. F2F ready for MD to complete in PRESS OPERATOR HEAVY DUTY folder. PRESS OPERATOR HEAVY DUTY will confirm with [facility] on 05/17/17. PRESS OPERATOR HEAVY DUTY will continue to follow. Assessment: Pt from [facility]. Plan: Pt will d/c back to [facility], likely tomorrow per MD, with [facility] for RN, PT, OT pending acceptance by [facility]. [facility] states no need for a reassessment as of 05/14/17. PRESS OPERATOR HEAVY DUTY will continue to follow. NEELA Davis
--- NOTE | 2017-05-16 17:37 | NUR ---
Blood Pressure: Patient has been hypertensive. She recieved Amlodipine as ordered by MD and her B/P has been trending back down and then back up a little . At 0940 her B/P was 157/77 then 150/81 then 157/93. Per MD patient is to stay in hosp overnight due to her B/P . MD has made some B/P med adjustments for better B/P control. Patient was informed of this information.
--- NOTE | 2017-05-16 17:44 | PCM.PNMED ---
Subjective Date of Service May 16, 2017 Subjective Denies any new issues/complaints. Denies any CP. Exam Vital Signs Vital Sign - Last Date Time Temp Pulse Resp B/P Pulse Ox O2 Delivery O2 Flow Rate FiO2 05/16/17 17:24 36.3 18 157/93 97 Room Air 05/16/17 16:21 82 Intake and Output 05/15/17 05/15/17 05/16/17 Cumulative From/Thru 15:00 23:00 07:00 05/12/17 18:48 - 05/16/17 06:52 Intake Total 710 ml 100 ml 6321 ml Output Total 0 ml 25 ml 29 ml Balance 710 ml 75 ml 6292 ml Intake Oral 700 ml 100 ml 4716 ml IV Total 10 ml 1605 ml Output Stool Total 0 ml 25 ml 29 ml # Voids 5 5 35 # Bowel Movements 0 Exam General: Alert, No Acute Distress Head: Normal Eyes: Scleral Anicteric Nose: Mucous Membr Moist/[place] Mouth: Mucous Membr Moist/[place] Neck: Supple Chest & Lungs: Chest Wall Normal, Clear to auscultation bilat Cardiovascular: Regular Rate/Rhythm Abdomen: Non-tender, Non-distended, Normoactive bowel tones, Soft Extremities: No cyanosis/clubbing/edema bilat Neurological: Grossly Neurologically Intact, Normal Speech Psych: Calm, appropriate affect IVs and Medications Medications Reviewed: Medications were reviewed in detail Lab and Diagnostics Result Diagram: 05/14/1762405/14/17 0625 X-Rays, CTs and MRIs X-RAY CHEST, TWO VIEWS IMPRESSION: Mild cardiomegaly, unchanged. No acute pulmonary findings. Dictated by: Effie Bruce M.D. on 05/12/2017 at 20:04 Approved by: Effie Bruce M.D. on 05/12/2017 at 20:04 Assessment & Plan 86-year-old female with past medical history remarkable for diabetes mellitus, hypertension and hyperlipidemia hypothyroidism presents with acute shortness of breath. # Acute Non ST elevation [place]. Present on admission - Cardiac cath (01/19/10): No obstructive coronary artery disease. - Echo 05/13: EF 50-55% and Inferolateral hypokinesis - Appreciate cardiology consult. Will followup with recs - Continue with medical management # Acute shortness of breath, present on admission. Resolved. - Unclear exact etiology and if cardiac in origin or not - DDimer mildly elevated on admission - Otherwise not tachycardic and without CP - Left LE U/S without DVT - Cardiac workup as noted above # Chronic hypertension. Poorly controlled at this time - Metoprolol increased to 25mg bid per cardiology on 05/14 - Continue Losartan 100mg daily - Add PO Hydralazine 10mg qid on 05/16 - IV Labetalol prn # Acute E. Coli Urinary tract infection. Present on admission - Continue with Ceftriaxone started by the ED (day 5) # Chronic Systolic congestive heart failure. ongoing - Patient does not appear to be having an acute exacerbation as she has chronic lower extremity edema with venous stasis changes and clear lung sounds - Continue outpatient medication furosemide 40 mg daily # Diabetes mellitus type II insulin-dependent, with complications including neuropathy - Patient describes taking Humulin twice daily 60 units in the a.m. and 10 units in the p.m. - [facility] records indicate Humulin 12 units in the a.m. 10 units in the p.m. - Continue NPH 10 units twice a day - Correction scale lispro - Gabapentin 600 mg before bed # Hypothyroidism - TSH ordered and normal - Continue home levothyroxine 50 g daily # Restless leg syndrome - Continue home pramipexole 0.5 mg 2-3 hours before bedtime Dispo: likely tomorrow pending better BP control GI Prophylaxis: Proton Pump Inhibitor VTE Prophylaxis: Other VTE Mechanical Devices: Intermittant Pneumatic CD Resuscitation Status: DNR/DNI:Do Not Resuscitate/Intubate Nic Reinoso May 16, 2017 17:44
[2017-05-17 00:27] VITALS: BP 156/77; PULSE 55; RESP 20; O2SAT 93
[2017-05-17 01:08] VITALS: O2SAT 99
--- NOTE | 2017-05-17 03:19 | NUR ---
Respiratory Patient is on CPOx while sleeping, 02 sats dipping to 78-80% on room air, bouncing back to 96-97%. Observed this twice, then placed patient on 2L oxymask at about 0100. Patient reported that she does not use a CPAP at home. Close monitoring in place. Denies dyspnea.
[2017-05-17 05:10] VITALS: BP 149/76; PULSE 58; RESP 18; O2SAT 100
[2017-05-17 05:32] VITALS: PULSE 71
--- NOTE | 2017-05-17 08:30 | NUR ---
VANDANA signed. NEELA Perez
[2017-05-17] MEDS: Pantoprazole 40 mg ER24 Tablet PO SCH ×2 (09:18→17:00)
[2017-05-17] MEDS: Sodium Chloride LOK Flush 10 mL Syringe IVFLUSH SCH ×2 (09:20→17:00)
[2017-05-17] MEDS: Tolterodine ER 4 mg ER24 Capsule PO SCH (09:20)
[2017-05-17] MEDS: Insulin Human NPH 100 Unit/mL 3 mL Inj SUBQ SCH ×2 (09:23→17:02)
[2017-05-17] MEDS: Insulin LISPRO 300 Unit/3 mL Inj SUBQ SCH ×3 (09:24→17:03)
[2017-05-17] MEDS: Nystatin 100,000 Unit/Gm 15 Gm Powder TOPICAL SCH (09:25)
[2017-05-17] MEDS: Heparin 5,000 Unit/mL Inj SUBQ SCH ×2 (09:25→16:30)
[2017-05-17 10:08] VITALS: BP 119/69; PULSE 70; RESP 19; O2SAT 96
[2017-05-17 10:27] VITALS: PULSE 62
[2017-05-17] MEDS ORDERED: CLOP75TA28 PO (12:02)
[2017-05-17] MEDS ORDERED: METO25TA6 PO (12:02)
[2017-05-17] MEDS ORDERED: HYDR-3938 PO ×2 (12:02→12:34)
--- NOTE | 2017-05-17 12:07 | PCM.DIMED ---
Discharge Instructions Date of Service May 17, 2017 Dates of Hospitalization May 12, 2017 at 22:19 Discharge Diagnosis Discharge Diagnosis # Acute Non ST elevation [place]. Present on admission # Acute shortness of breath, present on admission. Resolved. # Chronic poorly controlled hypertension. Improved. # Acute E. Coli Urinary tract infection. Present on admission. Post treatment with antibiotics # Diabetes mellitus type II insulin-dependent, with complications including neuropathy # Chronic hypothyroidism # Restless leg syndrome Diet Discharge Diet: Low fat, Low Sodium, Heart Healthy, Diabetic Activity Discharge Activity: Home Health Phyical Therapy Call your provider Call your provider for: Fever or Chills, Shortness of breath, Bleeding, Chest pain Patient Instructions Patient Instructions Seek immediate medical attention if any new or worsening signs or symptoms occur. Follow-up plan 1. Followup with primary care provider within one week 2. Followup with cardiology (Dr. Still) in 2-4 weeks. Call to setup appointment [facility] [address] [id number] Follow-up Provider: Napoleon Patterson DO Follow-up with PCP in: 1 week Provider: Alayna Still MD Follow-up in: Other (2-4 weeks) Nic Reinoso May 17, 2017 12:07
--- NOTE | 2017-05-17 13:52 | NUR ---
Social Work-discharge: Data:EMR Reviewed. Pt is on day 5 of hospitalization for dyspnea per H&P. Pt is medically stable for discharge. RYLAND spoke with Radha at [facility] who states that SW will need to speak with admissions to determine if pt is able to come back. RYLAND explained that prior SW had spoke with Jalyn and she informed SW pt was able to come back without an assessment. RYLAND spoke with Kristal in admissions who confirms pt is fine to return back to the Suites today. Kristal states she will informed the suites and Jalyn of pt's return. PT has cleared pt for home with HH Services. RYLAND updated Elizabeth with [facility] and faxed in packet and F2F to [phone], RYLAND confirmed she received this for RN,PT, and OT. Elizabeth states pt will start services on Friday. RYLAND updated pt at bedside and she is agreeable to plan. Pt states her daughter in law is on her way to pick her up. All updated and agreeable to plan. Assessment:Pt who would benefit from HH. Plan:Pt to discharge back to [facility] today via POV. RYLAND faxed in orders and F2F to Elizabeth from [facility] for RN,OT, and PT. All updated and agreeable to plan. NEELA Perez
[2017-05-17] MEDS ORDERED: TOLT4CAP13 PO (14:02)
--- NOTE | 2017-05-17 17:00 | PCM.DC.MED ---
Discharge Summary Date of Service May 17, 2017 Dates of Hospitalization Date of Hospital Admission May 12, 2017 at 22:19 Date of Discharge: May 17, 2017 Providers: Admitting Physician: Duran Roque MD Primary Care Physician: Napoleon Patterson DO Attending Physician: Duran Roque MD Diagnosis at Time of Discharge Diagnosis at Time of Discharge # Acute Non ST elevation MD. Present on admission # Acute shortness of breath, present on admission. Resolved. # Chronic poorly controlled hypertension. Improved. # Acute E. Coli Urinary tract infection. Present on admission. Post treatment with antibiotics # Diabetes mellitus type II insulin-dependent, with complications including neuropathy # Chronic hypothyroidism # Restless leg syndrome Consultations 1. Cardiology (Dr. Still) Procedures XRay, CTs & MRIs X-RAY CHEST, TWO VIEWS IMPRESSION: Mild cardiomegaly, unchanged. No acute pulmonary findings. Dictated by: Effie Bruce M.D. on 05/12/2017 at 20:04 Approved by: Effie Bruce M.D. on 05/12/2017 at 20:04 \ Date of Service: 05/14/17 1119 PROCEDURE: CT BRAIN WITHOUT CONTRAST ([id number]) IMPRESSION: No acute intracranial disease process. Dictated by: Tamiko Licona MD, PhD on 05/14/2017 at 12:33 Approved by: Tamiko Licona MD, PhD on 05/14/2017 at 12:35 Cardiac Echo Impression Date of Service: 05/13/17 0302 Echocardiogram Report Interpretation Summary The left ventricle is normal in size. The ejection fraction is estimated to be 50-55%. Inferolateral hypokinesis. There is severe biatrial enlargement. A patent foramen ovale is present. There is mild tricuspid regurgitation. The right ventricular systolic pressure is estimated at 53 mmHg assuming a right atrial pressure of 8 mm Hg. Electronically signed by: Didier Webb on Reading Physician:05/13/2017 04:10 PM Other Diagnostics Date of Service: 05/12/17 9280 PROCEDURE: US VEINOUS LEG DUPLEX UNILATERAL, LEFT IMPRESSION: No deep venous thrombosis identified within the left lower extremity. Dictated by: Venancio Bustos [facility] Interpreted: Nish Mcadams MD on 05/13/2017 at 8:38 Transcribed by: RAÚL on 05/13/2017 at 8:39 Approved by: Nish Mcadams M.D. on 05/13/2017 at 11:42 Brief History As noted in H&P by Dr. Bolanos: 86-year-old female with past medical history remarkable for diabetes mellitus, hypertension and hyperlipidemia hypothyroidism presents with acute shortness of breath. The patient states that she was in [place] having dinner when the nurse supervisor ordnance truck installation noticed that she was short of breath. The patient states that she seemed to have more difficulty ambulating back to her room due to the shortness of breath. She is also noticed a dry cough however this does not appear to be getting worse recently. The patient denied any chest pain or nausea associated with her shortness of breath however states that she is been having significant GERD symptoms recently which are also chronic in nature. The patient states that she does not feel like she has been recently sick and denies fever or chills. She states that she is not short of breath on lying flat but she has noticed increased leg swelling which is chronic in nature. The patient states that she has also been having headaches recently that she attributes to her right eye problem that she will be seeking surgery on within the next several weeks. Hospital Course # Acute Non ST elevation MD. Present on admission - Cardiac cath (01/19/10): No obstructive coronary artery disease. - Echo 05/13: EF 50-55% and Inferolateral hypokinesis - Cardiology consulted and recommendation is for continued medical management at this time. - Patient started on Plavix and Metoprolol increased per cardiology recommendations - She has been ambulating the hallways in the hospital without any report of chest pain or shortness of breath # Acute shortness of breath, present on admission. Resolved. - Unclear exact etiology and if cardiac in origin or not - DDimer mildly elevated on admission - Otherwise not tachycardic and without CP - Left LE U/S without DVT - Cardiac workup as noted above # Chronic hypertension. Poorly controlled initially but improved on day of discharge - Metoprolol increased to 25mg bid per cardiology on 05/14 - Continue Losartan 100mg daily - Added PO Hydralazine 10mg tid on 05/16 # Acute E. Coli Urinary tract infection. Present on admission - Post treatment with IV Ceftriaxone # Chronic Systolic congestive heart failure. ongoing - Patient does not appear to be having an acute exacerbation as she has chronic lower extremity edema with venous stasis changes and clear lung sounds - Continue outpatient medication furosemide 40 mg daily # Diabetes mellitus type II insulin-dependent, with complications including neuropathy - Patient describes taking Humulin twice daily 60 units in the a.m. and 10 units in the p.m. - [facility] records indicate Humulin 12 units in the a.m. 10 units in the p.m. - Continue NPH 10 units twice a day - Correction scale lispro - Gabapentin 600 mg before bed # Hypothyroidism - TSH ordered and normal - Continued home levothyroxine 50 g daily # Restless leg syndrome - Continued home pramipexole 0.5 mg 2-3 hours before bedtime Exam Vital Signs (Last) Date Time Temp Pulse Resp B/P Pulse Ox O2 Delivery O2 Flow Rate FiO2 05/17/17 10:27 62 05/17/17 10:08 36.6 19 119/69 96 Room Air 05/17/17 05:10 2.00 Exam General: Alert, No Acute Distress Head: Normal Eyes: Scleral Anicteric Nose: Mucous Membr Moist/[employer] Mouth: Mucous Membr Moist/[employer] Neck: Supple Chest & Lungs: Chest Wall Normal, Clear to auscultation bilat Cardiovascular: Regular Rate/Rhythm Abdomen: Non-tender, Non-distended, Normoactive bowel tones, Soft Extremities: No cyanosis/clubbing/edema bilat Neurological: Grossly Neurologically Intact, Normal Speech Psych: Calm, appropriate affect Test 05/12/17 19:00 05/12/17 22:40 05/13/17 02:10 05/13/17 11:00 D-Dimer 0.76mg/L FEU (<0.50) Hemoglobin A1c 6.1% (4.8-5.6) Total Bilirubin 0.3mg/dL (0.0-1.2) Aspartate Amino Transf (AST/SGOT) 17U/L (0-50) Alanine Aminotransferase (ALT/SGPT) 14U/L (0-32) Alkaline Phosphatase 91U/L (25-165) Total Protein 6.5g/dL (6.4-8.4) Albumin 3.4g/dL (3.4-5.0) Procalcitonin 0.48ng/mL (0.00-0.08) Thyroid Stimulating Hormone (TSH) 1.530uIU/mL (0.450-4.500) Hold Henry Top Tube Received (Received) Urine Color Yellow (YELLOW) Urine Appearance Slightly cloudy Urine pH 7.0 (5.0-8.0) Urine Specific [place] 1.010 (1.003-1.035) Urine Protein Tracemg/dL (NEG,TRACE) Urine Glucose (UA) Negativemg/dL (NEGATIVE) Urine Ketones Negativemg/dL (NEGATIVE) Urine Occult Blood Moderate (NEGATIVE) Urine Nitrite Positive (NEGATIVE) Urine Bilirubin Negative (NEGATIVE) Urine Urobilinogen Normalmg/dL (NORMAL) Urine Leukocyte Esterase Large (NEGATIVE) Urine RBC 0-2/hpf (0-2) Urine WBC 0-5/hpf (0-5) Urine Epithelial Cells Occasional/hpf (NONE-MOD) Urine Crystals None seen (NONE SEEN) Urine Bacteria None/hpf (NONE-FEW) Urine Hyaline Casts None/lpf (NONE) Urine Granular Casts None seen (NONE SEEN) Urine Waxy Casts None seen (NONE SEEN) Urine Red Blood Cell Casts None seen (NONE SEEN) Urine White Blood Cell Casts None seen (NONE SEEN) Urine Mucus None seen (None Seen) Urine Trichomonas None seen (NONE SEEN) Urine Yeast None (NONE SEEN) Urine Culture Reflexed Indicated Neutrophils (%) (Auto) 74.9% (40-74) Lymphocytes (%) (Auto) 8.1% (14-46) Monocytes (%) (Auto) 14.0% (4-12) Eosinophils (%) (Auto) 1.9% (0-5) Basophils (%) (Auto) 0.4% (0-3) Total Creatine Kinase 44U/L (21-215) Creatine Kinase MB 1.7ng/mL (0.0-5.3) Creatine Kinase MB % % (0.0-5.0) Triglycerides Level 56mg/dL (0-149) Cholesterol Level 78mg/dL (100-199) LDL Cholesterol, Calculated 32.800mg/dL (0-99) VLDL Cholesterol 11.200mg/dL HDL Cholesterol 34mg/dL (>39) Cholesterol/HDL Ratio 2.29 (0.0-4.4) Activated Partial Thromboplast Time 46.6sec (22.8-33.0) Test 05/14/17 06:25 White Blood Count 6.1th/mm3 (3.8-10.1) Red Blood Count 3.93mil/mm3 (3.90-5.20) Hemoglobin 10.9g/dL (12.0-15.6) Hematocrit 35.3% (35.0-46.0) Mean Corpuscular Volume 89.8fL (81-100) Mean Corpuscular Hemoglobin 27.7pg (27.0-35.0) Mean Corpuscular Hemoglobin Concent 30.9% (32.0-37.0) Red Cell Distribution Width 15.1% (12.3-15.4) Platelet Count 140bil/L (150-400) Sodium Level 139mEq/L (134-144) Potassium Level 3.9mEq/L (3.5-5.2) Chloride Level 100mEq/L (97-108) Carbon Dioxide Level 28mmol/L (18-29) Blood Urea Nitrogen 20mg/dL (8-27) Creatinine 1.00mg/dL (0.57-1.00) Estimat Glomerular Filtration Rate 75mL/min (>59) Glucose Level 152mg/dL (60-99) Calcium Level 8.3mg/dL (8.5-10.1) Magnesium Level 2.1mg/dL (1.6-2.6) Troponin T 0.082ug/L (0.0-0.011) Discharge Medications Discharge Medications Ascorbic Acid (Vitamin C) 500 Mg Capsule.er 500 MG PO DAILY (Reported) Calcium Carbonate (Calcium) 600 Mg Tablet 600 MG PO DAILY (Reported) Cholecalciferol (Vitamin D3) (Vitamin D) 1,000 Unit Tablet 1,000 UNIT PO DAILY ( Reported) Clopidogrel (Clopidogrel) 75 Mg Tablet 75 MG PO DAILY Prescribed by: ROBINSON PETERSEN MD Dextrin (Fiber) 350 Gm Powder 1-2 TBS PO HS (Reported) Difluprednate (Durezol) 5 Ml Drops 1 DROP BOTH_EYES QID (Reported) Ferrous Sulfate (Iron) 325 Mg Tablet 325 MG PO DAILY (Reported) Furosemide (Furosemide) 40 Mg Tablet 40 MG PO DAILY (Reported) Gabapentin (Gabapentin) 300 Mg Capsule 600 MG PO HS (Reported) Hydralazine (Hydralazine) 10 Mg Tablet 10 MG PO TID Prescribed by: ROBINSON PETERSEN MD Insulin Lispro (HumaLOG U100 Insulin Pen) 100 Unit/1 Ml Insuln.pen 4 UNIT SUBQ TIDWM (Reported) Levothyroxine (Levothyroxine) 50 Mcg Tablet 50 MCG PO DAILY (Reported) Losartan Potassium (Losartan Potassium) 100 Mg Tablet 100 MG PO DAILY Prescribed by: SLIME PERRY MD Metoprolol Tartrate (Metoprolol Tartrate) 25 Mg Tablet 37.5 MG PO BID Prescribed by: ROBINSON PETERSEN MD NPH, Human Insulin Isophane (HUMulin-N U100 Insulin Kwikpen) 100 Unit/1 Ml Insuln.pen 12 UNIT SUBQ MORNING (Reported) NPH, Human Insulin Isophane (HUMulin-N U100 Insulin Kwikpen) 100 Unit/1 Ml Insuln.pen 10 UNIT SUBQ Evening (Reported) Nystatin (Nystatin) 1 Each Powder.ea. 1 APPLIC TOPICAL BID (Reported) to affected areas in abdominal folds, groin, under breasts. Ofloxacin (Ofloxacin) 5 Ml Drops 1 DROP AFFECT_EYE QID (Reported) Omeprazole (Omeprazole) 20 Mg Capsule.dr 40 MG PO BID (Reported) Polyethylene Glycol 3350 (Miralax) 17 Gm Powd.pack 17 GM PO DAILY Prescribed by: ANAND ESTRADA MD Pramipexole Dihydrochloride (Mirapex) 0.5 Mg Tablet 0.5 MG PO HS (Reported) 2-3 hours before bedtime. Psyllium Husk (Metamucil) 3.4 Gram/5.4 Gram Powder 660 GM PO DAILY (Reported) Simvastatin (Simvastatin) 20 Mg Tablet 20 MG PO HS (Reported) Tolterodine Tartrate ER (Tolterodine Tartrate ER) 4 Mg Capsule 4 MG PO MORNING Prescribed by: ROBINSON PETERSEN MD Triamcinolone Acet (Triamcinolone Acetonide Ointment) 1 Applic/0.25 Gm Oint 1 APPLIC TOP BID (Reported) To lower extremities As needed Acetaminophen (Acetaminophen) 500 Mg Tablet 1,000 MG PO HS PRN PRN For Pain ( Reported) Avoid using together with Vicodin (Hydrocodone/acetaminophen). Albuterol Sulfate (Proair Respiclick) 90 Mcg Aer.pow.ba 2 PUFFS IH Q4-6H PRN PRN For Shortness of Breath (Reported) Cyclobenzaprine (Cyclobenzaprine) 5 Mg Tablet 5 MG PO TID PRN PRN Spasm ( Reported) Docusate Sodium (Colace) 100 Mg Capsule 100 MG PO HS PRN PRN For Constipation ( Reported) Hydrocodone-Acetaminophen 5-325 mg (Hydrocodone-Acetaminophen 5-325 mg) 1 Each Tablet 1 EACH PO Q4-6H PRN PRN For Pain (Reported) 4 tablets daily. Tablet at bedtime OR in the middle of the night. Temazepam (Temazepam) 7.5 Mg Capsule 7.5 MG PO HS PRN PRN For Insomnia (Reported ) Followup Plan Disposition: Home with home health Follow-up plan 1. Followup with primary care provider within one week 2. Followup with cardiology (Dr. Still) in 2-4 weeks. Call to setup appointment [facility] [address] [place], [place] [id number] Discharge Diet: Low fat, Low Sodium, Heart Healthy, Diabetic Discharge Activity: Home Health Phyical Therapy Patient Instructions Seek immediate medical attention if any new or worsening signs or symptoms occur. Expresses clear verbal understanding of noted recommendations and plans and agrees. Follow-up Provider: Napoleon Patterson DO Follow-up with PCP in: 1 week Provider: Alayna Still MD Follow-up in: Other (2-4 weeks) Time spent 35 min copies to: Napoleon Patterson DO; Alayna Still MD, Masoud May 17, 2017 17:00
--- NOTE | 2017-05-17 17:18 | NUR ---
Discharge Nursing Note: Patients discharge paperwork was reviewed with her in preparation for discharge. Patient has been waiting for her son to come and pick her up to drive her to [place]. At this time patient is eating her dinner and her son is here and will drive her to [place] when she is done with her meal. Patients IV was removed intact. Her telemetry was discontinued . All of her discharge information questions were answered to her satisfaction.Patient will be brought to the hospital lobby in a wheelchair by [facility] staff member and [facility] by [facility] son. Addendum: 05/17/17 at 1848 by AARON SHERMAN RN Patient left for home at 1800 with her son to drive her home to [place].
== END 2017-05-17 18:00 | DRG 281 ==
LOC: SED 18:33 → EDBD 18:33 → OBSVTOIN 22:19 → MPC 22:19
PROVIDERS: ADMIT Hospitalist; ATTEND Hospitalist
DX: I21.4 Non-ST elevation (NSTEMI) myocardial infarction (principal); N39.0 Urinary tract infection, site not specified; I50.22 Chronic systolic (congestive) heart failure; E66.9 Obesity, unspecified; Z68.38 Body mass index [BMI] 38.0-38.9, adult; B96.20 Unspecified Escherichia coli [E. coli] as the cause of diseases classified elsewhere; Z79.01 Long term (current) use of anticoagulants; Z79.52 Long term (current) use of systemic steroids; Z86.711 Personal history of pulmonary embolism; E11.40 Type 2 diabetes mellitus with diabetic neuropathy, unspecified; E03.9 Hypothyroidism, unspecified; G25.81 Restless legs syndrome; Z66 Do not resuscitate; I10 Essential (primary) hypertension; Z79.4 Long term (current) use of insulin